=== PATIENT | female | born 1955 | race Caucasian/White ===

== ENCOUNTER 2017-08-30 01:12 | Inpatient (IN) | payer MEDICARE, OTHER ==
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
[2017-08-30 02:17] LABS: % BASOPHILS 1.6 % (0.0-2.0); % EOSINOPHILS 1.2 % (0.0-5.0); % LYMPHOCYTES 15.1 % (20.0-50.0); % MONOCYTES 7.8 % (2.0-10.0); % NEUTROPHILS 74.3 % (40.0-80.0); BASOPHILE ABSOLUTE 0.1 Th/cumm (0-0.2); EOSINOPHILE ABSOLUTE 0.1 Th/cmm (0.1-0.4); HEMATOCRIT 48.5 % (41.0-60); LYMPHOCYTE ABSOLUTE 1.1 Th/cmm (1.5-3.0); MEAN CELL VOLUME 94.7 fl (81-100); MEAN CORPUSCULAR HEMOGLOBIN 31.3 pg (27.0-31.0); MONOCYTE ABSOLUTE 0.6 Th/cmm (0.3-1.0); NEUTROPHILE ABSOLUTE 5.3 Th/cmm (1.8-8.0); PLATELET COUNT 157 Th/cmm (150-400); RED BLOOD COUNT 5.12 Mil/cmm (3.80-5.10); RED CELL DISTRIBUTION WIDTH 14.3 % (11.5-20.0); WHITE BLOOD COUNT 7.2 Th/cmm (4.8-10.8)
[2017-08-30 03:00] LABS: ALB/GLOB RATIO 0.9 (1.0-1.8); ALBUMIN 3.4 gm/dL (3.7-5.3); ALKALINE PHOSPHATASE 67 U/L (34-104); ANION GAP 14.2 (7.0-16.0); BILIRUBIN,TOTAL 0.3 mg/dL (0.3-1.0); BUN - UREA NITROGEN 25 mg/dL (7-25); CALCIUM SERUM 9.2 mg/dL (8.6-10.3); CARBON DIOXIDE 26.5 mEq/L (21.0-31.0); CHLORIDE 97 mEq/L (98-107); CHOLESTEROL 186 mg/dL (<200); CREATININE - SERUM 0.6 mg/dL (0.6-1.2); GFR AFRICAN-AMERICAN > 60.0 ml/min (>90); GFR NON AFRICAN-AMERICAN > 60.0 ml/min; GLUCOSE 92 mg/dL (70-105); HDL -HIGH DENSITY LIPOPROTEIN 43 mg/dL (23-92); POTASSIUM SERUM 4.7 mEq/L (3.5-5.1); SGOT 19 U/L (13-39); SGPT/ALT 6 U/L (7-52); SODIUM SERUM 133 mEq/L (136-145); TOTAL PROTEIN,SERUM 7.2 gm/dL (6.0-8.3); TRIGLYCERIDES 87 mg/dL (<150)
[2017-08-30 04:36] VITALS: BP 104/78
--- NOTE | 2017-08-30 10:03 | Diagnostic Imaging Report ---
Portable chest x-ray HISTORY: Shortness of breath There is a poor inspiration. Faintly density noted in the left lung base. Changes associated with subsegmental atelectasis cannot be excluded. Allowing for the poor inspiration and portable technique, heart size is normal. Deformity noted about the right humeral head that appears related to old trauma. IMPRESSION: 1. Faint linear densities in the left lung base that may be related to a poor inspiration. Subsegmental atelectasis cannot be excluded.
[2017-08-30] MEDS: Multivitamin Tab PO SCH (10:10)
--- NOTE | 2017-08-30 12:39 | Internal Medicine Prog Note ---
Internal Medicine Subjective - Subjective Service Date: 08/30/17 ([id number] [facility] dictated) Internal Medicine Objective - Results Result Diagrams: 08/30/17 02:05 08/30/17 02:05 Recent Labs: Laboratory Last Values WBC 7.2 Th/cmm (4.8-10.8) 08/30/17 02:05 RBC 5.12 Mil/cmm (3.80-5.10) H 08/30/17 02:05 Hgb 16.0 gm/dL (12-16) 08/30/17 02:05 Hct 48.5 % (41.0-60) 08/30/17 02:05 MCV 94.7 fl (81-100) 08/30/17 02:05 MCH 31.3 pg (27.0-31.0) H 08/30/17 02:05 MCHC Differential 33.0 pg (28.0-36.0) 08/30/17 02:05 RDW 14.3 % (11.5-20.0) 08/30/17 02:05 Plt Count 157 Th/cmm (150-400) 08/30/17 02:05 MPV 7.0 fl 08/30/17 02:05 Neutrophils % 74.3 % (40.0-80.0) 08/30/17 02:05 Lymphocytes % 15.1 % (20.0-50.0) L 08/30/17 02:05 Monocytes % 7.8 % (2.0-10.0) 08/30/17 02:05 Eosinophils % 1.2 % (0.0-5.0) 08/30/17 02:05 Basophils % 1.6 % (0.0-2.0) 08/30/17 02:05 Sodium 133 mEq/L (136-145) L 08/30/17 02:05 Potassium 4.7 mEq/L (3.5-5.1) 08/30/17 02:05 Chloride 97 mEq/L (98-107) L 08/30/17 02:05 Carbon Dioxide 26.5 mEq/L (21.0-31.0) 08/30/17 02:05 Anion Gap 14.2 (7.0-16.0) 08/30/17 02:05 BUN 25 mg/dL (7-25) 08/30/17 02:05 Creatinine 0.6 mg/dL (0.6-1.2) 08/30/17 02:05 Est GFR ( Amer) > 60.0 ml/min (>90) 08/30/17 02:05 Est GFR (Non-Af Amer) > 60.0 ml/min 08/30/17 02:05 BUN/Creatinine Ratio 41.7 08/30/17 02:05 Glucose 92 mg/dL (70-105) 08/30/17 02:05 Calcium 9.2 mg/dL (8.6-10.3) 08/30/17 02:05 Total Bilirubin 0.3 mg/dL (0.3-1.0) 08/30/17 02:05 AST 19 U/L (13-39) 08/30/17 02:05 ALT 6 U/L (7-52) L 08/30/17 02:05 Alkaline Phosphatase 67 U/L (34-104) 08/30/17 02:05 Total Protein 7.2 gm/dL (6.0-8.3) 08/30/17 02:05 Albumin 3.4 gm/dL (3.7-5.3) L 08/30/17 02:05 Globulin 3.8 gm/dL 08/30/17 02:05 Albumin/Globulin Ratio 0.9 (1.0-1.8) L 08/30/17 02:05 Triglycerides 87 mg/dL (<150) 08/30/17 02:05 Cholesterol 186 mg/dL (<200) 08/30/17 02:05 LDL Cholesterol Direct 138 mg/dL (75-193) 08/30/17 02:05 HDL Cholesterol 43 mg/dL (23-92) 08/30/17 02:05 TSH 5.67 uIU/ml (0.34-5.60) H 08/30/17 02:05 - Physical Exam Vitals and I&O: Vital Signs Temp 97.2 F 08/30/17 06:30 Pulse 67 08/30/17 06:30 Resp 18 08/30/17 06:30 BP 106/69 08/30/17 06:30 Pulse Ox 96 08/30/17 06:30 Intake & Output 08/29/17 08/30/17 08/30/17 18:59 06:59 18:59 Intake Total 60 Balance 60 Intake: Oral 60 Other: # Voids 1 # Bowel Movements 1 Active Medications: Current Medications Acetaminophen (Tylenol) 650 mg PO Q6H PRN PRN Reason: Pain or Fever >101 Stop: 10/29/17 06:34 Alprazolam (Xanax) 0.5 mg PO Q8HR KIANA PRN Reason: Protocol Stop: 10/29/17 12:59 Ascorbic Acid (Vitamin C) 500 mg PO DAILY [facility]NA Stop: 10/29/17 08:59 Last Admin: 08/30/17 10:10 Dose: 500 mg Bisacodyl (Dulcolax 10 Mg Supp) 10 mg RC DAILY PRN PRN Reason: Constipation Stop: 10/29/17 06:34 Divalproex Sodium (Depakote Dr) 2,000 mg PO TID KIANA PRN Reason: Protocol Stop: 10/29/17 08:59 Fluoxetine HCl (Prozac) 60 mg PO DAILY [facility]NA PRN Reason: Protocol Stop: 10/29/17 08:59 Last Admin: 08/30/17 10:09 Dose: 60 mg Levetiracetam (Keppra) 500 mg PO BID [facility] Stop: 10/29/17 08:59 Last Admin: 08/30/17 10:10 Dose: 500 mg Lorazepam (Ativan) 0.5 mg PO Q4HR PRN; Protocol PRN Reason: Anxiety Stop: 09/29/17 03:59 Last Admin: 08/30/17 10:09 Dose: 0.5 mg Magnesium Hydroxide (Milk Of Magnesia) 30 ml PO HS [facility] Stop: 10/29/17 20:59 Midodrine (Proamatine) 10 mg PO TID [facility] Stop: 10/29/17 08:59 Last Admin: 08/30/17 10:10 Dose: 10 mg Miscellaneous (Bifidobacterium Infantis [Align]) 4 mg PO DAILY [facility] Stop: 10/29/17 08:59 Multivitamins/Vitamin C (Theragran) 1 tab PO DAILY [facility] Stop: 10/29/17 08:59 Last Admin: 08/30/17 10:10 Dose: 1 tab Risperidone (Risperdal) 1 mg PO BID [facility] PRN Reason: Protocol Stop: 10/29/17 08:59 Last Admin: 08/30/17 10:10 Dose: 1 mg Zolpidem Tartrate (Ambien) 5 mg PO HS PRN PRN Reason: Insomnia Stop: 10/29/17 03:59
--- NOTE | 2017-08-30 16:02 | History & Physical ---
ADMIT DATE: 08/30/2017 CHIEF COMPLAINT: Aggressive behavior. HISTORY OF PRESENT ILLNESS: This is a 62-year-old female who is a longterm resident who was admitted here to the Geropsych Unit due to agitation and aggressive behavior towards nursing staff and residents. PAST MEDICAL HISTORY: Asthma, COPD, GERD, dementia, bilateral eye blindness, depression, anxiety, DJD, renal insufficiency, diabetes and pneumonia. FAMILY HISTORY: Noncontributory. SOCIAL HISTORY: The patient is a longterm resident, requiring 24-hour nursing care. SURGICAL HISTORY: Unknown. MEDICATIONS: Please see medication list. REVIEW OF SYSTEMS: GENERAL: Denies any fevers and chills. CARDIOVASCULAR: Denies chest pain. RESPIRATORY: Denies shortness of breath. GASTROINTESTINAL: Denies nausea, vomiting, abdominal pain. GENITOURINARY: Denies increased frequency or dysuria. NEUROLOGIC: No headaches, seizures or syncope. All systems are reviewed and are negative. PHYSICAL EXAMINATION: GENERAL: The patient is well developed, well nourished, no acute distress. VITAL SIGNS: Temperature 97.2, heart rate 67, blood pressure 106/69, respiration 18 and O2 96%. HEENT: Head; normocephalic and atraumatic. NECK: Supple. No mass. LUNGS: Clear bilaterally. HEART: Regular rate and rhythm. ABDOMEN: Soft and nontender. LABORATORY DATA: WBC 7.2, H and H 16.0 and 48.5 and platelet of 157. Sodium 132, potassium 4.7, chloride 97, BUN 25, creatinine of 0.6 and albumin at 3.4. DIAGNOSTIC DATA: The patient had a chest x-ray done in the ER and the impression is faint linear densities in the left lung base may be related to poor inspiration. ASSESSMENT: Mild protein-calorie malnutrition, dementia, asthma, gastroesophageal reflux disease, blindness, depression, anxiety, degenerative joint disease, acute renal insufficiency and diabetes. PLAN: We will check patient's glucose level. We will monitor the patient's signs and symptoms of any hyper or hypoglycemia. We will await for patient's A1c level. Fall precautions will be initiated. We will continue to follow this patient. JOB# [id number]
[2017-08-30 18:41] LABS: A1C % 4.9 % (4.0-6.0)
[2017-08-30] MEDS: Magnesium Hydroxide (MOM) 30 mL UDC PO SCH (21:30)
--- NOTE | 2017-08-30 21:30 | Psychosocial Evaluation ---
DATE OF SERVICE: 08/30/2017 INITIAL PSYCHIATRIC EVALUATION IDENTIFICATION DATA: Date of , 1955. CHIEF COMPLAINT: Psychotic illness. HISTORY OF PRESENT ILLNESS: The patient is a 62-year-old female was referred from her facility, [facility] for increased agitation, anger outburst, become more confused, aggressive with staff, refusing care. The patient is very forgetful and she is a poor historian, not able to answer much questions. The patient apparently has been taking her medications, but at times she refuses assistance. PAST PSYCHIATRIC HISTORY: Dementia and psychosis. PAST MEDICAL HISTORY: The patient was medically cleared in the ER, refer to H and P. PSYCHOSOCIAL HISTORY: The patient resides at [facility]. She requires complete care. MENTAL STATUS EXAMINATION: The patient appears to be older than stated age. Speech is minimal, some delayed responses. The patient thought she was 89 years old. The patient appears to be talking to self and at times. Insight is poor. Judgment is impaired. The patient's strengths: The patient is passively accepting treatment at this time. The patient's weakness is lack of insight. ASSESSMENT: Psychosis, not otherwise specified, rule out dementia, Alzheimer's type. MEDICAL: As per medical history and H and P. PLAN: We will admit the patient for hospitalization. We will start individual and group therapy, assess psychopharmacological intervention. ESTIMATED LENGTH OF STAY: 7. CRITERIA FOR DISCHARGE: Improved condition. No agitation, no aggressive behavior, no psychosis, safe disposition outpatient treatment plan. [facility]# [id number]
[2017-08-31] MEDS: Levothyroxine 0.025 Mg Tab PO SCH (06:40)
[2017-08-31] MEDS: Multivitamin Tab PO SCH (10:07)
[2017-08-31] MEDS ORDERED: Ipratropium Neb 0.5 mg/2.5 mL UD HHN PRN (19:55)
[2017-08-31] MEDS ORDERED: Albuterol Nebulizer 2.5mg/3mL HHN PRN (19:55)
[2017-08-31] MEDS: Albuterol/Ipratropium Neb 3 ML AERS HHN PRN (20:19)
[2017-08-31] MEDS: Magnesium Hydroxide (MOM) 30 mL UDC PO SCH (21:42)
--- NOTE | 2017-08-31 23:40 | Progress Notes ---
DATE: 08/31/2017 PSYCHIATRIC PROGRESS NOTE SUBJECTIVE: Staff was spoken to. The patient is interviewed. Mood is noted to be irritable. Affect is constricted. Coping skills are noted to be very poor. Insight and judgment are noted to be very impaired. No side effects to the medications are noted. The patient has been getting easily irritable and angry and the patient has been having difficult time to cope with the stress. ASSESSMENT: The patient is still impulsive and having difficult time to cope with the stress. I encouraged the patient to verbalize the concerns rather than to act out. The patient is currently on 1000 mg twice a day on the Depakene. The patient is not able to swallow, hence the patient is going to be placed on the Depakene liquid. The patient is also going to be continued on the Risperdal and follow up with the supportive therapy. ASSESSMENT: The patient is still psychotic and impulsive. PLAN: To continue the patient with the current medications. I encouraged the patient to verbalize the concerns rather than to act out. JOB# [id number]
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
[2017-09-01] MEDS: Levothyroxine 0.025 Mg Tab PO SCH (06:50)
[2017-09-01] MEDS: Multivitamin Tab PO SCH (10:00)
--- NOTE | 2017-09-01 13:02 | Diagnostic Imaging Report ---
CHEST X-RAY: AP view INDICATION: Shortness of breath COMPARISON: 08/30/2017 FINDINGS: Suboptimal lung volumes are noted. Bibasal atelectatic changes are noted. No focal consolidation or effusions. Heart size normal. Degenerative changes of the spine and shoulders are noted. There may have been previous trauma to the right humeral neck. IMPRESSION: Suboptimal lung volumes and bibasal atelectatic changes. No focal consolidation identified. Possible previous trauma to the right humeral neck. If indicated dedicated right shoulder x-rays may also be obtained.
--- NOTE | 2017-09-01 13:14 | Internal Medicine Prog Note ---
Internal Medicine Subjective - Subjective Service Date: 09/01/17 Patient seen and examined:: with staff Patient is:: awake Per staff patient has:: tolerating meds Internal Medicine Objective - Results Result Diagrams: 08/30/17 02:05 08/30/17 02:05 Recent Labs: Laboratory Last Values WBC 7.2 Th/cmm (4.8-10.8) 08/30/17 02:05 RBC 5.12 Mil/cmm (3.80-5.10) H 08/30/17 02:05 Hgb 16.0 gm/dL (12-16) 08/30/17 02:05 Hct 48.5 % (41.0-60) 08/30/17 02:05 MCV 94.7 fl (81-100) 08/30/17 02:05 MCH 31.3 pg (27.0-31.0) H 08/30/17 02:05 MCHC Differential 33.0 pg (28.0-36.0) 08/30/17 02:05 RDW 14.3 % (11.5-20.0) 08/30/17 02:05 Plt Count 157 Th/cmm (150-400) 08/30/17 02:05 MPV 7.0 fl 08/30/17 02:05 Neutrophils % 74.3 % (40.0-80.0) 08/30/17 02:05 Lymphocytes % 15.1 % (20.0-50.0) L 08/30/17 02:05 Monocytes % 7.8 % (2.0-10.0) 08/30/17 02:05 Eosinophils % 1.2 % (0.0-5.0) 08/30/17 02:05 Basophils % 1.6 % (0.0-2.0) 08/30/17 02:05 Sodium 133 mEq/L (136-145) L 08/30/17 02:05 Potassium 4.7 mEq/L (3.5-5.1) 08/30/17 02:05 Chloride 97 mEq/L (98-107) L 08/30/17 02:05 Carbon Dioxide 26.5 mEq/L (21.0-31.0) 08/30/17 02:05 Anion Gap 14.2 (7.0-16.0) 08/30/17 02:05 BUN 25 mg/dL (7-25) 08/30/17 02:05 Creatinine 0.6 mg/dL (0.6-1.2) 08/30/17 02:05 Est GFR ( Amer) > 60.0 ml/min (>90) 08/30/17 02:05 Est GFR (Non-Af Amer) > 60.0 ml/min 08/30/17 02:05 BUN/Creatinine Ratio 41.7 08/30/17 02:05 Glucose 92 mg/dL (70-105) 08/30/17 02:05 Hemoglobin A1c % 4.9 % (4.0-6.0) 08/30/17 02:05 Calcium 9.2 mg/dL (8.6-10.3) 08/30/17 02:05 Total Bilirubin 0.3 mg/dL (0.3-1.0) 08/30/17 02:05 AST 19 U/L (13-39) 08/30/17 02:05 ALT 6 U/L (7-52) L 08/30/17 02:05 Alkaline Phosphatase 67 U/L (34-104) 08/30/17 02:05 Total Protein 7.2 gm/dL (6.0-8.3) 08/30/17 02:05 Albumin 3.4 gm/dL (3.7-5.3) L 08/30/17 02:05 Globulin 3.8 gm/dL 08/30/17 02:05 Albumin/Globulin Ratio 0.9 (1.0-1.8) L 08/30/17 02:05 Triglycerides 87 mg/dL (<150) 08/30/17 02:05 Cholesterol 186 mg/dL (<200) 08/30/17 02:05 LDL Cholesterol Direct 138 mg/dL (75-193) 08/30/17 02:05 HDL Cholesterol 43 mg/dL (23-92) 08/30/17 02:05 TSH 5.67 uIU/ml (0.34-5.60) H 08/30/17 02:05 RPR NONREACTIVE (NONREACTIVE) 08/30/17 02:05 - Physical Exam Vitals and I&O: Vital Signs Temp 97.9 F 09/01/17 06:39 Pulse 76 09/01/17 08:15 Resp 18 09/01/17 08:15 BP 101/48 09/01/17 06:39 Pulse Ox 95 09/01/17 08:15 Intake & Output 08/31/17 09/01/17 09/01/17 18:59 06:59 18:59 Intake Total 1200 120 Balance 1200 120 Intake: Oral 1200 120 Other: # Voids 4 3 # Bowel Movements 1 Active Medications: Current Medications Acetaminophen (Tylenol) 650 mg PO Q6H PRN PRN Reason: Pain or Fever >101 Stop: 10/29/17 06:34 Albuterol Sulfate (Albuterol 2.5mg/3ml Neb Ud) 2.5 mg HHN QIDRT [facility] Stop: 10/31/17 14:59 Albuterol/Ipratropium (Duoneb Neb) 3 ml HHN Q6HRT PRN PRN Reason: Wheezing Stop: 10/30/17 19:53 Last Admin: 08/31/17 20:19 Dose: 3 ml Alprazolam (Xanax) 0.5 mg PO Q8HR PRN; Protocol PRN Reason: Anxiety Stop: 10/29/17 12:59 Ascorbic Acid (Vitamin C) 500 mg PO DAILY [facility] Stop: 10/29/17 08:59 Last Admin: 09/01/17 10:00 Dose: 500 mg Bisacodyl (Dulcolax 10 Mg Supp) 10 mg RC DAILY PRN PRN Reason: Constipation Stop: 10/29/17 06:34 Fluoxetine HCl (Prozac) 60 mg PO DAILY [facility]NA PRN Reason: Protocol Stop: 10/29/17 08:59 Last Admin: 09/01/17 10:00 Dose: Not Given Ipratropium [place] (Atrovent Neb 0.5mg/2.5ml) 0.5 mg HHN Q2HRT PRN PRN Reason: Shortness of Breath or Wheeze Stop: 10/30/17 19:54 Ipratropium [place] (Atrovent Neb 0.5mg/2.5ml) 0.5 mg IH QIDRT [facility] Stop: 10/31/17 14:59 Levetiracetam (Keppra) 500 mg PO BID [facility] Stop: 10/29/17 08:59 Last Admin: 09/01/17 10:00 Dose: 500 mg Levothyroxine Sodium (Synthroid) 0.025 mg PO QDAC [facility] Stop: 10/30/17 07:29 Last Admin: 09/01/17 06:50 Dose: 0.025 mg Lorazepam (Ativan) 0.5 mg PO Q4HR PRN; Protocol PRN Reason: Anxiety Stop: 09/29/17 03:59 Last Admin: 08/30/17 10:09 Dose: 0.5 mg Magnesium Hydroxide (Milk Of Magnesia) 30 ml PO HS [facility] Stop: 10/29/17 20:59 Last Admin: 08/31/17 21:42 Dose: 30 ml Midodrine (Proamatine) 10 mg PO TID [facility] Stop: 10/29/17 08:59 Last Admin: 09/01/17 10:00 Dose: 10 mg Miscellaneous (Bifidobacterium Infantis [Align]) 4 mg PO DAILY [facility] Stop: 10/29/17 08:59 Multivitamins/Vitamin C (Theragran) 1 tab PO DAILY [facility] Stop: 10/29/17 08:59 Last Admin: 09/01/17 10:00 Dose: 1 tab Risperidone (Risperdal) 1 mg PO BID [facility] PRN Reason: Protocol Stop: 10/29/17 08:59 Last Admin: 09/01/17 10:00 Dose: 1 mg Valproate Sodium (Depakene) 2,000 mg PO TID [facility] Stop: 10/30/17 13:59 Last Admin: 09/01/17 10:00 Dose: Not Given Zolpidem Tartrate (Ambien) 5 mg PO HS PRN PRN Reason: Insomnia Stop: 10/29/17 03:59 General: alert HEENT: NC/AT, PERRLA Neck: Supple Lungs: CTAB Abdomen: soft, non-tender, non-distended, positive bowel sound Neurological: no change Internal Medicine Assmt/Plan - Assessment Assessment: mild protein calorie malnutrition dementia asthma gerd blindness depression anxiety djd acute renal insufficiency dm - Plan Plan: monitor s/sx of hypo/hyperglycemia fall precautions continue current plan of care
--- NOTE | 2017-09-01 14:22 | Progress Notes ---
DATE: 09/01/2017 SUBJECTIVE: Staff was spoken to. The patient is interviewed. Mood is noted to be irritable. Affect is constricted. Insight and judgment at this time are noted to be still impaired. Impulse control seems to be limited. The patient has paranoid delusions, but denies any command hallucinations. No side effects to the medications are noted. The patient has been on valproic acid and then fluoxetine and the patient is also on risperidone. The patient is able to tolerate the medications. No side effects to the medications are noted at this time. ASSESSMENT: The patient is still impulsive and depressed. PLAN: To continue the patient with the current medications and follow up with supportive therapy. JOB# [id number]
[2017-09-01] MEDS: Ipratropium Neb 0.5 mg/2.5 mL UD IH SCH ×2 (15:57→19:57)
[2017-09-01] MEDS: Albuterol Nebulizer 2.5mg/3mL HHN SCH ×2 (15:57→19:57)
[2017-09-01] MEDS: Magnesium Hydroxide (MOM) 30 mL UDC PO SCH (21:53)
[2017-09-01] MEDS: Albuterol/Ipratropium Neb 3 ML AERS HHN PRN (23:54)
[2017-09-02] MEDS: Levothyroxine 0.025 Mg Tab PO SCH (06:48)
[2017-09-02] MEDS: Albuterol Nebulizer 2.5mg/3mL HHN SCH ×4 (07:13→20:12)
[2017-09-02] MEDS: Ipratropium Neb 0.5 mg/2.5 mL UD IH SCH ×4 (07:13→20:12)
[2017-09-02] MEDS: Multivitamin Tab PO SCH (10:15)
[2017-09-02] MEDS: Lactobacillus Rhamnosus GG 15 Billion CFU CAP.SPRINK PO SCH ×2 (13:38→13:39)
--- NOTE | 2017-09-02 15:02 | Internal Medicine Prog Note ---
Internal Medicine Subjective - Subjective Service Date: 09/02/17 Patient is:: awake Per staff patient has:: tolerating meds Internal Medicine Objective - Results Result Diagrams: 08/30/17 02:05 08/30/17 02:05 Recent Labs: Laboratory Last Values WBC 7.2 Th/cmm (4.8-10.8) 08/30/17 02:05 RBC 5.12 Mil/cmm (3.80-5.10) H 08/30/17 02:05 Hgb 16.0 gm/dL (12-16) 08/30/17 02:05 Hct 48.5 % (41.0-60) 08/30/17 02:05 MCV 94.7 fl (81-100) 08/30/17 02:05 MCH 31.3 pg (27.0-31.0) H 08/30/17 02:05 MCHC Differential 33.0 pg (28.0-36.0) 08/30/17 02:05 RDW 14.3 % (11.5-20.0) 08/30/17 02:05 Plt Count 157 Th/cmm (150-400) 08/30/17 02:05 MPV 7.0 fl 08/30/17 02:05 Neutrophils % 74.3 % (40.0-80.0) 08/30/17 02:05 Lymphocytes % 15.1 % (20.0-50.0) L 08/30/17 02:05 Monocytes % 7.8 % (2.0-10.0) 08/30/17 02:05 Eosinophils % 1.2 % (0.0-5.0) 08/30/17 02:05 Basophils % 1.6 % (0.0-2.0) 08/30/17 02:05 Sodium 133 mEq/L (136-145) L 08/30/17 02:05 Potassium 4.7 mEq/L (3.5-5.1) 08/30/17 02:05 Chloride 97 mEq/L (98-107) L 08/30/17 02:05 Carbon Dioxide 26.5 mEq/L (21.0-31.0) 08/30/17 02:05 Anion Gap 14.2 (7.0-16.0) 08/30/17 02:05 BUN 25 mg/dL (7-25) 08/30/17 02:05 Creatinine 0.6 mg/dL (0.6-1.2) 08/30/17 02:05 Est GFR ( Amer) > 60.0 ml/min (>90) 08/30/17 02:05 Est GFR (Non-Af Amer) > 60.0 ml/min 08/30/17 02:05 BUN/Creatinine Ratio 41.7 08/30/17 02:05 Glucose 92 mg/dL (70-105) 08/30/17 02:05 Hemoglobin A1c % 4.9 % (4.0-6.0) 08/30/17 02:05 Calcium 9.2 mg/dL (8.6-10.3) 08/30/17 02:05 Total Bilirubin 0.3 mg/dL (0.3-1.0) 08/30/17 02:05 AST 19 U/L (13-39) 08/30/17 02:05 ALT 6 U/L (7-52) L 08/30/17 02:05 Alkaline Phosphatase 67 U/L (34-104) 08/30/17 02:05 Total Protein 7.2 gm/dL (6.0-8.3) 08/30/17 02:05 Albumin 3.4 gm/dL (3.7-5.3) L 08/30/17 02:05 Globulin 3.8 gm/dL 08/30/17 02:05 Albumin/Globulin Ratio 0.9 (1.0-1.8) L 08/30/17 02:05 Triglycerides 87 mg/dL (<150) 08/30/17 02:05 Cholesterol 186 mg/dL (<200) 08/30/17 02:05 LDL Cholesterol Direct 138 mg/dL (75-193) 08/30/17 02:05 HDL Cholesterol 43 mg/dL (23-92) 08/30/17 02:05 TSH 5.67 uIU/ml (0.34-5.60) H 08/30/17 02:05 RPR NONREACTIVE (NONREACTIVE) 08/30/17 02:05 - Physical Exam Vitals and I&O: Vital Signs Temp 97.9 F 09/02/17 06:35 Pulse 77 09/02/17 14:15 Resp 18 09/02/17 14:15 BP 87/49 09/02/17 06:35 Pulse Ox 94 09/02/17 14:15 Intake & Output 09/01/17 09/02/17 09/02/17 18:59 06:59 18:59 Intake Total 780 Balance 780 Intake: Oral 780 Other: # Voids 4 3 # Bowel Movements 1 Active Medications: Current Medications Acetaminophen (Tylenol) 650 mg PO Q6H PRN PRN Reason: Pain or Fever >101 Stop: 10/29/17 06:34 Albuterol Sulfate (Albuterol 2.5mg/3ml Neb Ud) 2.5 mg HHN QIDRT [facility] Stop: 10/31/17 14:59 Last Admin: 09/02/17 14:15 Dose: 2.5 mg Albuterol/Ipratropium (Duoneb Neb) 3 ml HHN Q6HRT PRN PRN Reason: Wheezing Stop: 10/30/17 19:53 Last Admin: 09/01/17 23:54 Dose: 3 ml Alprazolam (Xanax) 0.5 mg PO Q8HR PRN; Protocol PRN Reason: Anxiety Stop: 10/29/17 12:59 Ascorbic Acid (Vitamin C) 500 mg PO DAILY [facility] Stop: 10/29/17 08:59 Last Admin: 09/02/17 10:16 Dose: 500 mg Bisacodyl (Dulcolax 10 Mg Supp) 10 mg RC DAILY PRN PRN Reason: Constipation Stop: 10/29/17 06:34 Fluoxetine HCl (Prozac) 60 mg PO DAILY [facility] PRN Reason: Protocol Stop: 10/29/17 08:59 Last Admin: 09/02/17 10:16 Dose: 60 mg Ipratropium [place] (Atrovent Neb 0.5mg/2.5ml) 0.5 mg HHN Q2HRT PRN PRN Reason: Shortness of Breath or Wheeze Stop: 10/30/17 19:54 Ipratropium [place] (Atrovent Neb 0.5mg/2.5ml) 0.5 mg IH QIDRT [facility] Stop: 10/31/17 14:59 Last Admin: 09/02/17 14:15 Dose: 0.5 mg Lactobacillus Rhamnosus (Culturelle 15b) 1 each PO DAILY [facility] Stop: 10/29/17 08:59 Last Admin: 09/02/17 13:39 Dose: 1 each Levetiracetam (Keppra) 500 mg PO BID [facility] Stop: 10/29/17 08:59 Last Admin: 09/02/17 10:15 Dose: 500 mg Levothyroxine Sodium (Synthroid) 0.025 mg PO QDAC [facility] Stop: 10/30/17 07:29 Last Admin: 09/02/17 06:48 Dose: 0.025 mg Lorazepam (Ativan) 0.5 mg PO Q4HR PRN; Protocol PRN Reason: Anxiety Stop: 09/29/17 03:59 Last Admin: 08/30/17 10:09 Dose: 0.5 mg Magnesium Hydroxide (Milk Of Magnesia) 30 ml PO HS [facility] Stop: 10/29/17 20:59 Last Admin: 09/01/17 21:53 Dose: 30 ml Midodrine (Proamatine) 10 mg PO TID [facility] Stop: 10/29/17 08:59 Last Admin: 09/02/17 14:23 Dose: 10 mg Multivitamins/Vitamin C (Theragran) 1 tab PO DAILY [facility] Stop: 10/29/17 08:59 Last Admin: 09/02/17 10:15 Dose: 1 tab Risperidone (Risperdal) 1 mg PO BID [facility] PRN Reason: Protocol Stop: 10/29/17 08:59 Last Admin: 09/02/17 10:16 Dose: 1 mg Valproate Sodium (Depakene) 2,000 mg PO TID [facility] Stop: 10/30/17 13:59 Last Admin: 09/02/17 13:39 Dose: 2,000 mg Zolpidem Tartrate (Ambien) 5 mg PO HS PRN PRN Reason: Insomnia Stop: 10/29/17 03:59 General: alert HEENT: NC/AT, PERRLA Neck: Supple Lungs: CTAB Abdomen: soft, non-tender, non-distended, positive bowel sound Neurological: no change Internal Medicine Assmt/Plan - Assessment Assessment: mild protein calorie malnutrition dementia asthma gerd blindness depression anxiety djd acute renal insufficiency dm - Plan Plan: monitor s/sx of hypo/hyperglycemia fall precautions continue current plan of care
[2017-09-02] MEDS: Magnesium Hydroxide (MOM) 30 mL UDC PO SCH (21:30)
[2017-09-02] MEDS: guaiFENesin 200 MG/10 ML UDC PO PRN (22:28)
--- NOTE | 2017-09-03 00:33 | Progress Notes ---
DATE: 09/02/2017 PSYCHIATRIC PROGRESS NOTE SUBJECTIVE: Staff was spoken to. The patient is interviewed. The patient is noted to be drowsy. The patient has been not able to verbalize the concerns. No side effects to the medications are noted. Insight and judgment at this time are noted to be still impaired. Impulse control is noted to be poor. The patient is reported to have been making some screaming and yelling ____ this morning. The patient at this time is not providing much of any information. In view of that one, it is decided to decrease the dose on the Prozac to 40 mg and closely monitor the patient for any depressive symptoms and psychotic symptoms. ASSESSMENT: The patient is still psychotic and impulsive. PLAN: To continue the patient with the current medications. I encouraged the patient to verbalize the concerns rather than to act out. JOB# [id number]
[2017-09-03] MEDS: Albuterol/Ipratropium Neb 3 ML AERS HHN PRN (02:37)
[2017-09-03] MEDS: Ipratropium Neb 0.5 mg/2.5 mL UD IH SCH ×4 (06:40→20:17)
[2017-09-03] MEDS: Albuterol Nebulizer 2.5mg/3mL HHN SCH ×4 (06:40→20:17)
[2017-09-03] MEDS: Levothyroxine 0.025 Mg Tab PO SCH (06:45)
[2017-09-03 06:55] LABS: % BASOPHILS 1.3 % (0.0-2.0); % LYMPHOCYTES 12.1 % (20.0-50.0); % MONOCYTES 8.3 % (2.0-10.0); % NEUTROPHILS 77.3 % (40.0-80.0); BASOPHILE ABSOLUTE 0.1 Th/cumm (0-0.2); EOSINOPHILE ABSOLUTE 0.1 Th/cmm (0.1-0.4); HEMATOCRIT 39.6 % (41.0-60); HEMOGLOBIN 13.3 gm/dL (12-16); LYMPHOCYTE ABSOLUTE 0.9 Th/cmm (1.5-3.0); MEAN CELL VOLUME 93.5 fl (81-100); MEAN CORPUSCULAR HEMOGLOBIN 31.5 pg (27.0-31.0); MEAN CORPUSCULAR HGB CONC 33.7 pg (28.0-36.0); MEAN PLATELET VOLUME 6.6 fl; MONOCYTE ABSOLUTE 0.6 Th/cmm (0.3-1.0); NEUTROPHILE ABSOLUTE 5.4 Th/cmm (1.8-8.0); PLATELET COUNT 162 Th/cmm (150-400); RED BLOOD COUNT 4.23 Mil/cmm (3.80-5.10); RED CELL DISTRIBUTION WIDTH 14.3 % (11.5-20.0); WHITE BLOOD COUNT 7.1 Th/cmm (4.8-10.8)
[2017-09-03 07:24] LABS: ALBUMIN 2.9 gm/dL (3.7-5.3); ALKALINE PHOSPHATASE 50 U/L (34-104); ANION GAP 7.8 (7.0-16.0); BILIRUBIN,TOTAL 0.3 mg/dL (0.3-1.0); BUN - UREA NITROGEN 22 mg/dL (7-25); CALCIUM SERUM 8.1 mg/dL (8.6-10.3); CARBON DIOXIDE 33.5 mEq/L (21.0-31.0); CHLORIDE 102 mEq/L (98-107); CREATININE - SERUM 0.4 mg/dL (0.6-1.2); GFR AFRICAN-AMERICAN > 60.0 ml/min (>90); GFR NON AFRICAN-AMERICAN > 60.0 ml/min; POTASSIUM SERUM 4.3 mEq/L (3.5-5.1); SGOT 14 U/L (13-39); SGPT/ALT 8 U/L (7-52); SODIUM SERUM 139 mEq/L (136-145); TOTAL PROTEIN,SERUM 5.7 gm/dL (6.0-8.3)
[2017-09-03] MEDS: Multivitamin Tab PO SCH (08:46)
[2017-09-03] MEDS: Lactobacillus Rhamnosus GG 15 Billion CFU CAP.SPRINK PO SCH (08:46)
[2017-09-03 09:11] LABS: GLUCOSE 77 mg/dL (70-105)
--- NOTE | 2017-09-03 15:30 | Internal Medicine Prog Note ---
Internal Medicine Subjective - Subjective Service Date: 09/03/17 Patient is:: awake Per staff patient has:: tolerating meds Internal Medicine Objective - Results Result Diagrams: 09/03/17 06:22 09/03/17 06:22 Recent Labs: Laboratory Last Values WBC 7.1 Th/cmm (4.8-10.8) 09/03/17 06:22 RBC 4.23 Mil/cmm (3.80-5.10) 09/03/17 06:22 Hgb 13.3 gm/dL (12-16) 09/03/17 06:22 Hct 39.6 % (41.0-60) L 09/03/17 06:22 MCV 93.5 fl (81-100) 09/03/17 06:22 MCH 31.5 pg (27.0-31.0) H 09/03/17 06:22 MCHC Differential 33.7 pg (28.0-36.0) 09/03/17 06:22 RDW 14.3 % (11.5-20.0) 09/03/17 06:22 Plt Count 162 Th/cmm (150-400) 09/03/17 06:22 MPV 6.6 fl 09/03/17 06:22 Neutrophils % 77.3 % (40.0-80.0) 09/03/17 06:22 Lymphocytes % 12.1 % (20.0-50.0) L 09/03/17 06:22 Monocytes % 8.3 % (2.0-10.0) 09/03/17 06: Eosinophils % 1.0 % (0.0-5.0) 09/03/17 06: Basophils % 1.3 % (0.0-2.0) 09/03/17 06:22 Sodium 139 mEq/L (136-145) 09/03/17 06:22 Potassium 4.3 mEq/L (3.5-5.1) 09/03/17 06:22 Chloride 102 mEq/L (98-107) 09/03/17 06:22 Carbon Dioxide 33.5 mEq/L (21.0-31.0) H 09/03/17 06:22 Anion Gap 7.8 (7.0-16.0) 09/03/17 06:22 BUN 22 mg/dL (7-25) 09/03/17 06:22 Creatinine 0.4 mg/dL (0.6-1.2) L 09/03/17 06:22 Est GFR ( Amer) > 60.0 ml/min (>90) 09/03/17 06:22 Est GFR (Non-Af Amer) > 60.0 ml/min 09/03/17 06:22 BUN/Creatinine Ratio 55.0 09/03/17 06:22 Glucose 77 mg/dL (70-105) 09/03/17 06:22 Hemoglobin A1c % 4.9 % (4.0-6.0) 08/30/17 02:05 Calcium 8.1 mg/dL (8.6-10.3) L 09/03/17 06:22 Total Bilirubin 0.3 mg/dL (0.3-1.0) 09/03/17 06:22 AST 14 U/L (13-39) 09/03/17 06:22 ALT 8 U/L (7-52) 09/03/17 06:22 Alkaline Phosphatase 50 U/L (34-104) 09/03/17 06:22 Total Protein 5.7 gm/dL (6.0-8.3) L 09/03/17 06:22 Albumin 2.9 gm/dL (3.7-5.3) L 09/03/17 06:22 Globulin 2.8 gm/dL 09/03/17 06:22 Albumin/Globulin Ratio 1.0 (1.0-1.8) 09/03/17 06:22 Triglycerides 87 mg/dL (<150) 08/30/17 02:05 Cholesterol 186 mg/dL (<200) 08/30/17 02:05 LDL Cholesterol Direct 138 mg/dL (75-193) 08/30/17 02:05 HDL Cholesterol 43 mg/dL (23-92) 08/30/17 02:05 TSH 5.67 uIU/ml (0.34-5.60) H 08/30/17 02:05 Valproic Acid 94.5 ug/mL (50.0-100.0) 09/03/17 06:22 RPR NONREACTIVE (NONREACTIVE) 08/30/17 02:05 - Physical Exam Vitals and I&O: Vital Signs Temp 97.8 F 09/03/17 15:21 Pulse 75 09/03/17 15:21 Resp 20 09/03/17 15:21 BP 107/55 09/03/17 15:21 Pulse Ox 96 09/03/17 15:21 Intake & Output 09/02/17 09/03/17 09/03/17 18:59 06:59 18:59 Intake Total 480 240 Output Total 3 Balance 477 240 Intake: Oral 480 240 Output: Urine 2 Stool 1 Other: # Voids 2 Active Medications: Current Medications Acetaminophen (Tylenol) 650 mg PO Q6H PRN PRN Reason: Pain or Fever >101 Stop: 10/29/17 06:34 Albuterol Sulfate (Albuterol 2.5mg/3ml Neb Ud) 2.5 mg HHN QIDRT [facility] Stop: 10/31/17 14:59 Last Admin: 09/03/17 14:34 Dose: 2.5 mg Albuterol/Ipratropium (Duoneb Neb) 3 ml HHN Q6HRT PRN PRN Reason: Wheezing Stop: 10/30/17 19:53 Last Admin: 09/03/17 02:37 Dose: 3 ml Alprazolam (Xanax) 0.5 mg PO Q8HR PRN; Protocol PRN Reason: Anxiety Stop: 10/29/17 12:59 Ascorbic Acid (Vitamin C) 500 mg PO DAILY [facility] Stop: 10/29/17 08:59 Last Admin: 09/03/17 08:45 Dose: 500 mg Bisacodyl (Dulcolax 10 Mg Supp) 10 mg RC DAILY PRN PRN Reason: Constipation Stop: 10/29/17 06:34 Fluoxetine HCl (Prozac) 20 mg PO DAILY [facility] PRN Reason: Protocol Stop: 11/02/17 14:37 Guaifenesin (Robitussin) 200 mg PO Q4H PRN PRN Reason: Cough or Congestion Stop: 11/01/17 21:41 Last Admin: 09/02/17 22:28 Dose: 200 mg Ipratropium [place] (Atrovent Neb 0.5mg/2.5ml) 0.5 mg HHN Q2HRT PRN PRN Reason: Shortness of Breath or Wheeze Stop: 10/30/17 19:54 Ipratropium [place] (Atrovent Neb 0.5mg/2.5ml) 0.5 mg IH QIDRT [facility] Stop: 10/31/17 14:59 Last Admin: 09/03/17 14:34 Dose: 0.5 mg Lactobacillus Rhamnosus (Culturelle 15b) 1 each PO DAILY [facility] Stop: 10/29/17 08:59 Last Admin: 09/03/17 08:46 Dose: 1 each Levetiracetam (Keppra) 500 mg PO BID [facility] Stop: 10/29/17 08:59 Last Admin: 09/03/17 08:46 Dose: 500 mg Levothyroxine Sodium (Synthroid) 0.025 mg PO QDAC [facility] Stop: 10/30/17 07:29 Last Admin: 09/03/17 06:45 Dose: 0.025 mg Lorazepam (Ativan) 0.5 mg PO Q4HR PRN; Protocol PRN Reason: Anxiety Stop: 09/29/17 03:59 Last Admin: 08/30/17 10:09 Dose: 0.5 mg Magnesium Hydroxide (Milk Of Magnesia) 30 ml PO HS [facility] Stop: 10/29/17 20:59 Last Admin: 09/02/17 21:30 Dose: 30 ml Midodrine (Proamatine) 10 mg PO TID [facility] Stop: 10/29/17 08:59 Multivitamins/Vitamin C (Theragran) 1 tab PO DAILY [facility] Stop: 10/29/17 08:59 Last Admin: 09/03/17 08:46 Dose: 1 tab Mupirocin (Bactroban Oint) 1 appl NS BID [facility] Stop: 09/07/17 17:01 Last Admin: 09/03/17 08:56 Dose: 1 appl Risperidone (Risperdal) 1 mg PO BID [facility] PRN Reason: Protocol Stop: 10/29/17 08:59 Last Admin: 09/03/17 08:45 Dose: 1 mg Zolpidem Tartrate (Ambien) 5 mg PO HS PRN PRN Reason: Insomnia Stop: 10/29/17 03:59 General: alert HEENT: NC/AT, PERRLA Neck: Supple Lungs: CTAB Abdomen: soft, non-tender, non-distended, positive bowel sound Neurological: no change Internal Medicine Assmt/Plan - Assessment Assessment: mild protein calorie malnutrition dementia asthma gerd blindness depression anxiety djd acute renal insufficiency dm - Plan Plan: monitor s/sx of hypo/hyperglycemia fall precautions continue current plan of care Nutritional Asmnt/Malnutr-PDOC - Dietary Evaluation Malnutrition Findings (Please click <Entered> for more info): Nutritional Asmnt/Malnutrition Start: 09/02/17 15: 47 Text: Status: Active Freq: Document 09/02/17 15:53 [facility] (Rec: 09/02/17 16:00 MICHAEL [email or web address]) Nutritional Asmnt/Malnutrition Patient General Information Nutritional Screening Moderate Risk Diagnosis psychosis NOS Pertinent Medical Hx/Surgical Hx asthma, COPD, GERD, dementia, bilateral eye blindness, depression, anxiety, DJD, renal insufficiency, DM, PNA Subjective Information Pt seen sitting up in bed at time of visit. Spoke with NURSE COORDINATOR, NURSE COORDINATOR reported pt consumed 100% of lunch with feeding. Pt needs feeding assist d/t bilateral eye blindness. Per EMR, PO intake 5-100%. Current Diet Order/ Nutrition Support mec soft ground Pertinent Medications vit C, culturelle, synthroid, theragran Pertinent Labs 08/30 Na 133, Cl 97, glucose 92 , A1c 4.9 Nutritional Hx/Data Height 4 ft 8 in Height (Calculated Centimeters) 142.2 Current Weight (lbs) 129 lb Weight (Calculated Kilograms) 58.5 Weight (Calculated Grams) 44575.4 [place] Body Weight 92 Body Mass Index (BMI) 28.9 Weight Status Overweight GI Symptoms GI Symptoms None Last BM 09/01 Difficult in: None Skin Integrity/Comment: bruise Estimated Nutritional Goals BEE in Kcals: Adj wt of IBW Calories/Kcals/Kg 25-30 Kcals Calculated [id number] Protein: Adj wt of IBW Protein g/k Protein Calculated 46 Fluid: ml 1150-1380ml (1ml/kcal) Nutritional Problem No current Nutrition Prob Problem N/A Malnutrition Alert Protein-Calorie Malnutrition N/A Is there a minimum of two criteria No selected? Query Text:Check all the applicable criteria. A minimum of two criteria are recommended for diagnosis of either severe or non-severe malnutrition. Intervention/Recommendation Comments 1. Continue with [facility] soft ground diet as ordered. Please assit pt with feeding at each meal. 2. Monitor PO intake, wt, labs and skin integrity 3. F/U as low risk in 7 days, 09/09, PO check 09/06 Expected Outcomes/Goals Expected Outcomes/Goals 1. PO intake to meet at least 75% of nutritional needs. 2. Wt stability, skin to remain intact, labs to approach WNL.
--- NOTE | 2017-09-03 17:30 | Progress Notes ---
DATE: 09/03/2017 SUBJECTIVE: Staff was spoken to. The patient is interviewed. Mood is noted to be depressed. Affect is constricted. The patient is isolative and withdrawn. Insight and judgment are noted to be still impaired. Impulse control seems to be limited. No side effects to the medications are noted. The patient has been isolative and withdrawn. The patient at this time is being closely monitored for any aggressive behavior and so far she has been quiet and no major behavioral problems are reported by the staff. The patient is currently on risperidone 1 mg twice a day along with valproic acid 200 mg 3 times a day. Valproic acid level is noted to be 94.5. ASSESSMENT: The patient's mood swings are coming under control. PLAN: To continue the patient with supportive therapy. We encouraged the patient to verbalize the concerns and gradually decrease the dose on the Prozac to 20 mg and follow the patient with supportive therapy. JOB# [id number]
[2017-09-03] MEDS: Magnesium Hydroxide (MOM) 30 mL UDC PO SCH (21:14)
[2017-09-04] MEDS: Albuterol Nebulizer 2.5mg/3mL HHN SCH ×4 (06:28→19:59)
[2017-09-04] MEDS: Ipratropium Neb 0.5 mg/2.5 mL UD IH SCH ×4 (06:29→19:59)
[2017-09-04] MEDS: Levothyroxine 0.025 Mg Tab PO SCH (06:51)
[2017-09-04] MEDS: guaiFENesin 200 MG/10 ML UDC PO PRN (06:57)
[2017-09-04] MEDS: Multivitamin Tab PO SCH (09:52)
[2017-09-04] MEDS: Lactobacillus Rhamnosus GG 15 Billion CFU CAP.SPRINK PO SCH (09:53)
--- NOTE | 2017-09-04 15:09 | Internal Medicine Prog Note ---
Internal Medicine Subjective - Subjective Service Date: 09/04/17 Patient is:: awake Per staff patient has:: tolerating meds Internal Medicine Objective - Results Result Diagrams: 09/03/17 06:22 09/03/17 06:22 Recent Labs: Laboratory Last Values WBC 7.1 Th/cmm (4.8-10.8) 09/03/17 06:22 RBC 4.23 Mil/cmm (3.80-5.10) 09/03/17 06:22 Hgb 13.3 gm/dL (12-16) 09/03/17 06:22 Hct 39.6 % (41.0-60) L 09/03/17 06:22 MCV 93.5 fl (81-100) 09/03/17 06:22 MCH 31.5 pg (27.0-31.0) H 09/03/17 06:22 MCHC Differential 33.7 pg (28.0-36.0) 09/03/17 06:22 RDW 14.3 % (11.5-20.0) 09/03/17 06:22 Plt Count 162 Th/cmm (150-400) 09/03/17 06:22 MPV 6.6 fl 09/03/17 06:22 Neutrophils % 77.3 % (40.0-80.0) 09/03/17 06:22 Lymphocytes % 12.1 % (20.0-50.0) L 09/03/17 06:22 Monocytes % 8.3 % (2.0-10.0) 09/03/17 06: Eosinophils % 1.0 % (0.0-5.0) 09/03/17 06: Basophils % 1.3 % (0.0-2.0) 09/03/17 06:22 Sodium 139 mEq/L (136-145) 09/03/17 06:22 Potassium 4.3 mEq/L (3.5-5.1) 09/03/17 06:22 Chloride 102 mEq/L (98-107) 09/03/17 06:22 Carbon Dioxide 33.5 mEq/L (21.0-31.0) H 09/03/17 06:22 Anion Gap 7.8 (7.0-16.0) 09/03/17 06:22 BUN 22 mg/dL (7-25) 09/03/17 06:22 Creatinine 0.4 mg/dL (0.6-1.2) L 09/03/17 06:22 Est GFR ( Amer) > 60.0 ml/min (>90) 09/03/17 06:22 Est GFR (Non-Af Amer) > 60.0 ml/min 09/03/17 06:22 BUN/Creatinine Ratio 55.0 09/03/17 06:22 Glucose 77 mg/dL (70-105) 09/03/17 06:22 Hemoglobin A1c % 4.9 % (4.0-6.0) 08/30/17 02:05 Calcium 8.1 mg/dL (8.6-10.3) L 09/03/17 06:22 Total Bilirubin 0.3 mg/dL (0.3-1.0) 09/03/17 06:22 AST 14 U/L (13-39) 09/03/17 06:22 ALT 8 U/L (7-52) 09/03/17 06:22 Alkaline Phosphatase 50 U/L (34-104) 09/03/17 06:22 Total Protein 5.7 gm/dL (6.0-8.3) L 09/03/17 06:22 Albumin 2.9 gm/dL (3.7-5.3) L 09/03/17 06:22 Globulin 2.8 gm/dL 09/03/17 06:22 Albumin/Globulin Ratio 1.0 (1.0-1.8) 09/03/17 06:22 Triglycerides 87 mg/dL (<150) 08/30/17 02:05 Cholesterol 186 mg/dL (<200) 08/30/17 02:05 LDL Cholesterol Direct 138 mg/dL (75-193) 08/30/17 02:05 HDL Cholesterol 43 mg/dL (23-92) 08/30/17 02:05 TSH 5.67 uIU/ml (0.34-5.60) H 08/30/17 02:05 Valproic Acid 94.5 ug/mL (50.0-100.0) 09/03/17 06:22 RPR NONREACTIVE (NONREACTIVE) 08/30/17 02:05 - Physical Exam Vitals and I&O: Vital Signs Temp 98 F 09/04/17 05:38 Pulse 73 09/04/17 11:13 Resp 18 09/04/17 11:13 BP 101/63 09/04/17 05:38 Pulse Ox 97 09/04/17 11:13 Intake & Output 09/03/17 09/04/17 09/04/17 18:59 06:59 18:59 Intake Total 720 480 Output Total 2 1 Balance 718 479 Intake: Oral 720 480 Output: Urine 2 Stool 0 Urine/Stool Mix 1 Other: # Voids 1 # Bowel Movements 2 Active Medications: Current Medications Acetaminophen (Tylenol) 650 mg PO Q6H PRN PRN Reason: Pain or Fever >101 Stop: 10/29/17 06:34 Albuterol Sulfate (Albuterol 2.5mg/3ml Neb Ud) 2.5 mg HHN QIDRT [facility] Stop: 10/31/17 14:59 Last Admin: 09/04/17 11:07 Dose: 2.5 mg Albuterol/Ipratropium (Duoneb Neb) 3 ml HHN Q6HRT PRN PRN Reason: Wheezing Stop: 10/30/17 19:53 Last Admin: 09/03/17 02:37 Dose: 3 ml Alprazolam (Xanax) 0.5 mg PO Q8HR PRN; Protocol PRN Reason: Anxiety Stop: 10/29/17 12:59 Ascorbic Acid (Vitamin C) 500 mg PO DAILY [facility] Stop: 10/29/17 08:59 Last Admin: 09/04/17 09:52 Dose: 500 mg Bisacodyl (Dulcolax 10 Mg Supp) 10 mg RC DAILY PRN PRN Reason: Constipation Stop: 10/29/17 06:34 Fluoxetine HCl (Prozac) 20 mg PO DAILY [facility] PRN Reason: Protocol Stop: 11/02/17 14:37 Last Admin: 09/04/17 09:52 Dose: 20 mg Guaifenesin (Robitussin) 200 mg PO Q4H PRN PRN Reason: Cough or Congestion Stop: 11/01/17 21:41 Last Admin: 09/04/17 06:57 Dose: 200 mg Ipratropium [place] (Atrovent Neb 0.5mg/2.5ml) 0.5 mg HHN Q2HRT PRN PRN Reason: Shortness of Breath or Wheeze Stop: 10/30/17 19:54 Ipratropium [place] (Atrovent Neb 0.5mg/2.5ml) 0.5 mg IH QIDRT [facility] Stop: 10/31/17 14:59 Last Admin: 09/04/17 11:07 Dose: 0.5 mg Lactobacillus Rhamnosus (Culturelle 15b) 1 each PO DAILY [facility] Stop: 10/29/17 08:59 Last Admin: 09/04/17 09:53 Dose: 1 each Levetiracetam (Keppra) 500 mg PO BID [facility] Stop: 10/29/17 08:59 Last Admin: 09/04/17 09:52 Dose: 500 mg Levothyroxine Sodium (Synthroid) 0.025 mg PO QDAC [facility] Stop: 10/30/17 07:29 Last Admin: 09/04/17 06:51 Dose: 0.025 mg Lorazepam (Ativan) 0.5 mg PO Q4HR PRN; Protocol PRN Reason: Anxiety Stop: 09/29/17 03:59 Last Admin: 08/30/17 10:09 Dose: 0.5 mg Magnesium Hydroxide (Milk Of Magnesia) 30 ml PO HS [facility] Stop: 10/29/17 20:59 Last Admin: 09/03/17 21:14 Dose: 30 ml Midodrine (Proamatine) 10 mg PO TID [facility] Stop: 10/29/17 08:59 Last Admin: 09/04/17 13:54 Dose: Not Given Multivitamins/Vitamin C (Theragran) 1 tab PO DAILY [facility] Stop: 10/29/17 08:59 Last Admin: 09/04/17 09:52 Dose: 1 tab Mupirocin (Bactroban Oint) 1 appl NS BID [facility] Stop: 09/07/17 17:01 Last Admin: 09/04/17 09:54 Dose: 1 appl Risperidone (Risperdal) 1 mg PO BID [facility] PRN Reason: Protocol Stop: 10/29/17 08:59 Last Admin: 09/04/17 09:52 Dose: 1 mg Zolpidem Tartrate (Ambien) 5 mg PO HS PRN PRN Reason: Insomnia Stop: 10/29/17 03:59 General: alert HEENT: NC/AT, PERRLA Neck: Supple Lungs: CTAB Abdomen: soft, non-tender, non-distended, positive bowel sound Neurological: no change Internal Medicine Assmt/Plan - Assessment Assessment: mild protein calorie malnutrition dementia asthma gerd blindness depression anxiety djd acute renal insufficiency dm - Plan Plan: monitor s/sx of hypo/hyperglycemia fall precautions continue current plan of care Nutritional Asmnt/Malnutr-PDOC - Dietary Evaluation Malnutrition Findings (Please click <Entered> for more info): Nutritional Asmnt/Malnutrition Start: 09/02/17 15: 47 Text: Status: Active Freq: Document 09/02/17 15:53 [facility] (Rec: 09/02/17 16:00 HEN [email or web address]) Nutritional Asmnt/Malnutrition Patient General Information Nutritional Screening Moderate Risk Diagnosis psychosis NOS Pertinent Medical Hx/Surgical Hx asthma, COPD, GERD, dementia, bilateral eye blindness, depression, anxiety, DJD, renal insufficiency, DM, PNA Subjective Information Pt seen sitting up in bed at time of visit. Spoke with PUBLIC OPINION SURVEY TAKER, PUBLIC OPINION SURVEY TAKER reported pt consumed 100% of lunch with feeding. Pt needs feeding assist d/t bilateral eye blindness. Per EMR, PO intake 5-100%. Current Diet Order/ Nutrition Support the [facility] soft ground Pertinent Medications vit C, culturelle, synthroid, theragran Pertinent Labs 08/30 Na 133, Cl 97, glucose 92 , A1c 4.9 Nutritional Hx/Data Height 4 ft 8 in Height (Calculated Centimeters) 142.2 Current Weight (lbs) 129 lb Weight (Calculated Kilograms) 58.5 Weight (Calculated Grams) 28014.4 [place] Body Weight 92 Body Mass Index (BMI) 28.9 Weight Status Overweight GI Symptoms GI Symptoms None Last BM 09/01 Difficult in: None Skin Integrity/Comment: bruise Estimated Nutritional Goals BEE in Kcals: Adj wt of IBW Calories/Kcals/Kg 25-30 Kcals Calculated 4630-9841 Protein: Adj wt of IBW Protein g/k Protein Calculated 46 Fluid: ml 1150-1380ml (1ml/kcal) Nutritional Problem No current Nutrition Prob Problem N/A Malnutrition Alert Protein-Calorie Malnutrition N/A Is there a minimum of two criteria No selected? Query Text:Check all the applicable criteria. A minimum of two criteria are recommended for diagnosis of either severe or non-severe malnutrition. Intervention/Recommendation Comments 1. Continue with the [facility] soft ground diet as ordered. Please assit pt with feeding at each meal. 2. Monitor PO intake, wt, labs and skin integrity 3. F/U as low risk in 7 days, 09/09, PO check 09/06 Expected Outcomes/Goals Expected Outcomes/Goals 1. PO intake to meet at least 75% of nutritional needs. 2. Wt stability, skin to remain intact, labs to approach WNL.
--- NOTE | 2017-09-04 18:58 | Progress Notes ---
DATE: 09/04/2017 PSYCHIATRIC PROGRESS NOTE SUBJECTIVE: Staff was spoken to. The patient is interviewed. Mood is noted to be depressed. Affect is constricted. The patient is isolative and withdrawn. The patient is not presenting with any major behavioral problems today. The patient has, however, continued to be confused and it is also reported that the patient ____ gets easily agitated, but today she seems to be doing a little bit better. ASSESSMENT: The patient's impulsivity is getting under control. PLAN: To continue the patient's current medications and followup. JOB# [id number]
[2017-09-04] MEDS: Magnesium Hydroxide (MOM) 30 mL UDC PO SCH (21:04)
[2017-09-05] MEDS: Levothyroxine 0.025 Mg Tab PO SCH (06:53)
[2017-09-05] MEDS: Albuterol Nebulizer 2.5mg/3mL HHN SCH ×3 (07:57→15:52)
[2017-09-05] MEDS: Ipratropium Neb 0.5 mg/2.5 mL UD IH SCH ×4 (07:58→19:51)
[2017-09-05] MEDS: Lactobacillus Rhamnosus GG 15 Billion CFU CAP.SPRINK PO SCH (09:15)
[2017-09-05] MEDS: Multivitamin Tab PO SCH (09:16)
--- NOTE | 2017-09-05 11:42 | Internal Medicine Prog Note ---
Internal Medicine Subjective - Subjective Patient seen and examined:: with staff, chart reviewed Patient is:: awake, verbal, interactive, confused Patient Complaints of:: congestion Per staff patient has:: no adverse event, no episodes of fall, noncompliant, tolerating meds Internal Medicine Objective - Results Result Diagrams: 09/03/17 06:22 09/03/17 06:22 Recent Labs: Laboratory Last Values WBC 7.1 Th/cmm (4.8-10.8) 09/03/17 06:22 RBC 4.23 Mil/cmm (3.80-5.10) 09/03/17 06:22 Hgb 13.3 gm/dL (12-16) 09/03/17 06:22 Hct 39.6 % (41.0-60) L 09/03/17 06:22 MCV 93.5 fl (81-100) 09/03/17 06:22 MCH 31.5 pg (27.0-31.0) H 09/03/17 06:22 MCHC Differential 33.7 pg (28.0-36.0) 09/03/17 06:22 RDW 14.3 % (11.5-20.0) 09/03/17 06:22 Plt Count 162 Th/cmm (150-400) 09/03/17 06:22 MPV 6.6 fl 09/03/17 06:22 Neutrophils % 77.3 % (40.0-80.0) 09/03/17 06:22 Lymphocytes % 12.1 % (20.0-50.0) L 09/03/17 06: Monocytes % 8.3 % (2.0-10.0) 09/03/17 06:22 Eosinophils % 1.0 % (0.0-5.0) 09/03/17 06:22 Basophils % 1.3 % (0.0-2.0) 09/03/17 06:22 Sodium 139 mEq/L (136-145) 09/03/17 06:22 Potassium 4.3 mEq/L (3.5-5.1) 09/03/17 06:22 Chloride 102 mEq/L (98-107) 09/03/17 06:22 Carbon Dioxide 33.5 mEq/L (21.0-31.0) H 09/03/17 06:22 Anion Gap 7.8 (7.0-16.0) 09/03/17 06:22 BUN 22 mg/dL (7-25) 09/03/17 06:22 Creatinine 0.4 mg/dL (0.6-1.2) L 09/03/17 06:22 Est GFR ( Amer) > 60.0 ml/min (>90) 09/03/17 06:22 Est GFR (Non-Af Amer) > 60.0 ml/min 09/03/17 06:22 BUN/Creatinine Ratio 55.0 09/03/17 06:22 Glucose 77 mg/dL (70-105) 09/03/17 06:22 Hemoglobin A1c % 4.9 % (4.0-6.0) 08/30/17 02:05 Calcium 8.1 mg/dL (8.6-10.3) L 09/03/17 06:22 Total Bilirubin 0.3 mg/dL (0.3-1.0) 09/03/17 06:22 AST 14 U/L (13-39) 09/03/17 06:22 ALT 8 U/L (7-52) 09/03/17 06:22 Alkaline Phosphatase 50 U/L (34-104) 09/03/17 06:22 Total Protein 5.7 gm/dL (6.0-8.3) L 09/03/17 06:22 Albumin 2.9 gm/dL (3.7-5.3) L 09/03/17 06:22 Globulin 2.8 gm/dL 09/03/17 06:22 Albumin/Globulin Ratio 1.0 (1.0-1.8) 09/03/17 06:22 Triglycerides 87 mg/dL (<150) 08/30/17 02:05 Cholesterol 186 mg/dL (<200) 08/30/17 02:05 LDL Cholesterol Direct 138 mg/dL (75-193) 08/30/17 02:05 HDL Cholesterol 43 mg/dL (23-92) 08/30/17 02:05 TSH 5.67 uIU/ml (0.34-5.60) H 08/30/17 02:05 Valproic Acid 94.5 ug/mL (50.0-100.0) 09/03/17 06:22 RPR NONREACTIVE (NONREACTIVE) 08/30/17 02:05 - Physical Exam Vitals and I&O: Vital Signs Temp 98.1 F 09/05/17 06:28 Pulse 67 09/05/17 08:24 Resp 18 09/05/17 08:24 BP 90/38 09/05/17 06:28 Pulse Ox 96 09/05/17 08:24 Intake & Output 09/04/17 09/05/17 09/05/17 18:59 06:59 18:59 Intake Total 800 180 Balance 800 180 Intake: Oral 800 180 Other: # Voids 4 2 # Bowel Movements 1 1 Active Medications: Current Medications Acetaminophen (Tylenol) 650 mg PO Q6H PRN PRN Reason: Pain or Fever >101 Stop: 10/29/17 06:34 Albuterol Sulfate (Albuterol 2.5mg/3ml Neb Ud) 2.5 mg HHN QIDRT [facility] Stop: 10/31/17 14:59 Last Admin: 09/05/17 07:57 Dose: 2.5 mg Albuterol/Ipratropium (Duoneb Neb) 3 ml HHN Q6HRT PRN PRN Reason: Wheezing Stop: 10/30/17 19:53 Last Admin: 09/03/17 02:37 Dose: 3 ml Alprazolam (Xanax) 0.5 mg PO Q8HR PRN; Protocol PRN Reason: Anxiety Stop: 10/29/17 12:59 Ascorbic Acid (Vitamin C) 500 mg PO DAILY [facility] Stop: 10/29/17 08:59 Last Admin: 09/05/17 09:16 Dose: 500 mg Bisacodyl (Dulcolax 10 Mg Supp) 10 mg RC DAILY PRN PRN Reason: Constipation Stop: 10/29/17 06:34 Fluoxetine HCl (Prozac) 20 mg PO DAILY [facility] PRN Reason: Protocol Stop: 11/02/17 14:37 Last Admin: 09/05/17 09:15 Dose: 20 mg Guaifenesin (Robitussin) 200 mg PO Q4H PRN PRN Reason: Cough or Congestion Stop: 11/01/17 21:41 Last Admin: 09/04/17 06:57 Dose: 200 mg Ipratropium [place] (Atrovent Neb 0.5mg/2.5ml) 0.5 mg HHN Q2HRT PRN PRN Reason: Shortness of Breath or Wheeze Stop: 10/30/17 19:54 Ipratropium [place] (Atrovent Neb 0.5mg/2.5ml) 0.5 mg IH QIDRT [facility] Stop: 10/31/17 14:59 Last Admin: 09/05/17 07:58 Dose: 0.5 mg Lactobacillus Rhamnosus (Culturelle 15b) 1 each PO DAILY [facility] Stop: 10/29/17 08:59 Last Admin: 09/05/17 09:15 Dose: 1 each Levetiracetam (Keppra) 500 mg PO BID [facility] Stop: 10/29/17 08:59 Last Admin: 09/05/17 09:15 Dose: 500 mg Levothyroxine Sodium (Synthroid) 0.025 mg PO QDAC [facility] Stop: 10/30/17 07:29 Last Admin: 09/05/17 06:53 Dose: 0.025 mg Lorazepam (Ativan) 0.5 mg PO Q4HR PRN; Protocol PRN Reason: Anxiety Stop: 09/29/17 03:59 Last Admin: 08/30/17 10:09 Dose: 0.5 mg Magnesium Hydroxide (Milk Of Magnesia) 30 ml PO HS [facility] Stop: 10/29/17 20:59 Last Admin: 09/04/17 21:04 Dose: 30 ml Midodrine (Proamatine) 10 mg PO TID [facility] Stop: 10/29/17 08:59 Last Admin: 09/05/17 09:15 Dose: 10 mg Multivitamins/Vitamin C (Theragran) 1 tab PO DAILY [facility] Stop: 10/29/17 08:59 Last Admin: 09/05/17 09:16 Dose: 1 tab Mupirocin (Bactroban Oint) 1 appl NS BID [facility] Stop: 09/07/17 17:01 Last Admin: 09/05/17 09:16 Dose: 1 appl Risperidone (Risperdal) 1 mg PO BID [facility] PRN Reason: Protocol Stop: 10/29/17 08:59 Last Admin: 09/05/17 09:16 Dose: 1 mg Zolpidem Tartrate (Ambien) 5 mg PO HS PRN PRN Reason: Insomnia Stop: 10/29/17 03:59 General: demented HEENT: NC/AT, PERRLA Neck: Supple Lungs: congested, rales Abdomen: soft, non-tender, non-distended, positive bowel sound Extremities: excoriation, deformity, atrophy Neurological: no change Internal Medicine Assmt/Plan - Assessment Assessment: Assessment Assessment: mild protein calorie malnutrition dementia asthma gerd blindness depression anxiety djd acute renal insufficiency dm - Plan Plan: monitor s/sx of hypo/hyperglycemia fall precautions continue current plan of care - Plan Plan: labs noted and cxr lindsey rn Nutritional Asmnt/Malnutr-PDOC - Dietary Evaluation Malnutrition Findings (Please click <Entered> for more info): Nutritional Asmnt/Malnutrition Start: 09/02/17 15: 47 Text: Status: Active Freq: Document 09/02/17 15:53 MICHAEL (Rec: 09/02/17 16:00 MICHAEL [email or web address]) Nutritional Asmnt/Malnutrition Patient General Information Nutritional Screening Moderate Risk Diagnosis psychosis NOS Pertinent Medical Hx/Surgical Hx asthma, COPD, GERD, dementia, bilateral eye blindness, depression, anxiety, DJD, renal insufficiency, DM, PNA Subjective Information Pt seen sitting up in bed at time of visit. Spoke with POLITICAL RESEARCHER, POLITICAL RESEARCHER reported pt consumed 100% of lunch with feeding. Pt needs feeding assist d/t bilateral eye blindness. Per EMR, PO intake 5-100%. Current Diet Order/ Nutrition Support [facility] soft ground Pertinent Medications vit C, culturelle, synthroid, theragran Pertinent Labs 08/30 Na 133, Cl 97, glucose 92 , A1c 4.9 Nutritional Hx/Data Height 1.42 m Height (Calculated Centimeters) 142.2 Current Weight (lbs) 58.513 kg Weight (Calculated Kilograms) 58.5 Weight (Calculated Grams) 65399.4 [place] Body Weight 92 Body Mass Index (BMI) 28.9 Weight Status Overweight GI Symptoms GI Symptoms None Last BM 09/01 Difficult in: None Skin Integrity/Comment: bruise Estimated Nutritional Goals BEE in Kcals: Adj wt of IBW Calories/Kcals/Kg 25-30 Kcals Calculated 8386-4397 Protein: Adj wt of IBW Protein g/k Protein Calculated 46 Fluid: ml 1150-1380ml (1ml/kcal) Nutritional Problem No current Nutrition Prob Problem N/A Malnutrition Alert Protein-Calorie Malnutrition N/A Is there a minimum of two criteria No selected? Query Text:Check all the applicable criteria. A minimum of two criteria are recommended for diagnosis of either severe or non-severe malnutrition. Intervention/Recommendation Comments 1. Continue with [facility] soft ground diet as ordered. Please assit pt with feeding at each meal. 2. Monitor PO intake, wt, labs and skin integrity 3. F/U as low risk in 7 days, 09/09, PO check 09/06 Expected Outcomes/Goals Expected Outcomes/Goals 1. PO intake to meet at least 75% of nutritional needs. 2. Wt stability, skin to remain intact, labs to approach WNL.
--- NOTE | 2017-09-05 17:15 | Progress Notes ---
DATE: 09/05/2017 SUBJECTIVE: Staff was spoken to. The patient is interviewed. Mood is noted to be irritable. Affect is constricted. The patient is stating that the medication is making her too sleepy. No side effects to the medications are noted so far. The patient is currently on 2 mg of the Risperdal and is going to be decreased to 1 mg today and the patient is going to be followed up with the supportive therapy. ASSESSMENT: The patient is depressed and paranoid. PLAN: To continue the patient with the supportive therapy and followup. JOB# [id number]
[2017-09-05] MEDS: Albuterol/Ipratropium Neb 3 ML AERS HHN PRN (19:51)
[2017-09-05] MEDS: Magnesium Hydroxide (MOM) 30 mL UDC PO SCH (20:58)
[2017-09-06] MEDS: Levothyroxine 0.025 Mg Tab PO SCH (06:50)
[2017-09-06] MEDS: Ipratropium Neb 0.5 mg/2.5 mL UD IH SCH ×4 (07:28→20:14)
[2017-09-06] MEDS: Albuterol Nebulizer 2.5mg/3mL HHN SCH ×4 (07:28→20:15)
[2017-09-06] MEDS: Multivitamin Tab PO SCH (09:57)
[2017-09-06] MEDS: Lactobacillus Rhamnosus GG 15 Billion CFU CAP.SPRINK PO SCH (09:58)
--- NOTE | 2017-09-06 12:17 | Internal Medicine Prog Note ---
Internal Medicine Subjective - Subjective Service Date: 09/06/17 Patient is:: awake, verbal, interactive, confused Patient Complaints of:: congestion Per staff patient has:: no adverse event, no episodes of fall, noncompliant, tolerating meds Internal Medicine Objective - Results Result Diagrams: 09/03/17 06:22 09/03/17 06:22 Recent Labs: Laboratory Last Values WBC 7.1 Th/cmm (4.8-10.8) 09/03/17 06:22 RBC 4.23 Mil/cmm (3.80-5.10) 09/03/17 06:22 Hgb 13.3 gm/dL (12-16) 09/03/17 06:22 Hct 39.6 % (41.0-60) L 09/03/17 06:22 MCV 93.5 fl (81-100) 09/03/17 06:22 MCH 31.5 pg (27.0-31.0) H 09/03/17 06: MCHC Differential 33.7 pg (28.0-36.0) 09/03/17 06:22 RDW 14.3 % (11.5-20.0) 09/03/17 06:22 Plt Count 162 Th/cmm (150-400) 09/03/17 06:22 MPV 6.6 fl 09/03/17 06:22 Neutrophils % 77.3 % (40.0-80.0) 09/03/17 06:22 Lymphocytes % 12.1 % (20.0-50.0) L 09/03/17 06: Monocytes % 8.3 % (2.0-10.0) 09/03/17 06:22 Eosinophils % 1.0 % (0.0-5.0) 09/03/17 06:22 Basophils % 1.3 % (0.0-2.0) 09/03/17 06:22 Sodium 139 mEq/L (136-145) 09/03/17 06:22 Potassium 4.3 mEq/L (3.5-5.1) 09/03/17 06:22 Chloride 102 mEq/L (98-107) 09/03/17 06:22 Carbon Dioxide 33.5 mEq/L (21.0-31.0) H 09/03/17 06:22 Anion Gap 7.8 (7.0-16.0) 09/03/17 06:22 BUN 22 mg/dL (7-25) 09/03/17 06:22 Creatinine 0.4 mg/dL (0.6-1.2) L 09/03/17 06:22 Est GFR ( Amer) > 60.0 ml/min (>90) 09/03/17 06:22 Est GFR (Non-Af Amer) > 60.0 ml/min 09/03/17 06:22 BUN/Creatinine Ratio 55.0 09/03/17 06:22 Glucose 77 mg/dL (70-105) 09/03/17 06:22 Hemoglobin A1c % 4.9 % (4.0-6.0) 08/30/17 02:05 Calcium 8.1 mg/dL (8.6-10.3) L 09/03/17 06:22 Total Bilirubin 0.3 mg/dL (0.3-1.0) 09/03/17 06:22 AST 14 U/L (13-39) 09/03/17 06:22 ALT 8 U/L (7-52) 09/03/17 06:22 Alkaline Phosphatase 50 U/L (34-104) 09/03/17 06:22 Total Protein 5.7 gm/dL (6.0-8.3) L 09/03/17 06:22 Albumin 2.9 gm/dL (3.7-5.3) L 09/03/17 06:22 Globulin 2.8 gm/dL 09/03/17 06:22 Albumin/Globulin Ratio 1.0 (1.0-1.8) 09/03/17 06:22 Triglycerides 87 mg/dL (<150) 08/30/17 02:05 Cholesterol 186 mg/dL (<200) 08/30/17 02:05 LDL Cholesterol Direct 138 mg/dL (75-193) 08/30/17 02:05 HDL Cholesterol 43 mg/dL (23-92) 08/30/17 02:05 TSH 5.67 uIU/ml (0.34-5.60) H 08/30/17 02:05 Valproic Acid 94.5 ug/mL (50.0-100.0) 09/03/17 06:22 RPR NONREACTIVE (NONREACTIVE) 08/30/17 02:05 - Physical Exam Vitals and I&O: Vital Signs Temp 98.9 F 09/06/17 06:27 Pulse 69 09/06/17 11:12 Resp 18 09/06/17 11:12 BP 101/57 09/06/17 06:27 Pulse Ox 98 09/06/17 11:12 Intake & Output 09/05/17 09/06/17 09/06/17 18:59 06:59 18:59 Intake Total 800 180 Balance 800 180 Intake: Oral 800 180 Other: # Voids 5 2 # Bowel Movements 2 0 Active Medications: Current Medications Acetaminophen (Tylenol) 650 mg PO Q6H PRN PRN Reason: Pain or Fever >101 Stop: 10/29/17 06:34 Albuterol Sulfate (Albuterol 2.5mg/3ml Neb Ud) 2.5 mg HHN QIDRT [facility] Stop: 10/31/17 14:59 Last Admin: 09/06/17 11:12 Dose: 2.5 mg Albuterol/Ipratropium (Duoneb Neb) 3 ml HHN Q6HRT PRN PRN Reason: Wheezing Stop: 10/30/17 19:53 Last Admin: 09/05/17 19:51 Dose: 3 ml Alprazolam (Xanax) 0.5 mg PO Q8HR PRN; Protocol PRN Reason: Anxiety Stop: 10/29/17 12:59 Ascorbic Acid (Vitamin C) 500 mg PO DAILY [facility] Stop: 10/29/17 08:59 Last Admin: 09/06/17 09:55 Dose: 500 mg Bisacodyl (Dulcolax 10 Mg Supp) 10 mg RC DAILY PRN PRN Reason: Constipation Stop: 10/29/17 06:34 Fluoxetine HCl (Prozac) 20 mg PO DAILY [facility] PRN Reason: Protocol Stop: 11/02/17 14:37 Last Admin: 09/06/17 09:57 Dose: 20 mg Guaifenesin (Robitussin) 200 mg PO Q4H PRN PRN Reason: Cough or Congestion Stop: 11/01/17 21:41 Last Admin: 09/04/17 06:57 Dose: 200 mg Ipratropium [place] (Atrovent Neb 0.5mg/2.5ml) 0.5 mg HHN Q2HRT PRN PRN Reason: Shortness of Breath or Wheeze Stop: 10/30/17 19:54 Ipratropium [place] (Atrovent Neb 0.5mg/2.5ml) 0.5 mg IH QIDRT [facility] Stop: 10/31/17 14:59 Last Admin: 09/06/17 11:11 Dose: 0.5 mg Lactobacillus Rhamnosus (Culturelle 15b) 1 each PO DAILY [facility] Stop: 10/29/17 08:59 Last Admin: 09/06/17 09:58 Dose: 1 each Levetiracetam (Keppra) 500 mg PO BID [facility] Stop: 10/29/17 08:59 Last Admin: 09/06/17 09:57 Dose: 500 mg Levothyroxine Sodium (Synthroid) 0.025 mg PO QDAC [facility] Stop: 10/30/17 07:29 Last Admin: 09/06/17 06:50 Dose: 0.025 mg Lorazepam (Ativan) 0.5 mg PO Q4HR PRN; Protocol PRN Reason: Anxiety Stop: 09/29/17 03:59 Last Admin: 08/30/17 10:09 Dose: 0.5 mg Magnesium Hydroxide (Milk Of Magnesia) 30 ml PO HS [facility] Stop: 10/29/17 20:59 Last Admin: 09/05/17 20:58 Dose: Not Given Midodrine (Proamatine) 10 mg PO TID [facility] Stop: 10/29/17 08:59 Last Admin: 09/06/17 09:56 Dose: 10 mg Multivitamins/Vitamin C (Theragran) 1 tab PO DAILY [facility] Stop: 10/29/17 08:59 Last Admin: 09/06/17 09:57 Dose: 1 tab Mupirocin (Bactroban Oint) 1 appl NS BID [facility] Stop: 09/07/17 17:01 Last Admin: 09/05/17 17:38 Dose: 1 appl Risperidone (Risperdal) 1 mg PO HS [facility] PRN Reason: Protocol Stop: 11/04/17 20:59 Last Admin: 09/05/17 20:58 Dose: 1 mg Zolpidem Tartrate (Ambien) 5 mg PO HS PRN PRN Reason: Insomnia Stop: 10/29/17 03:59 General: demented HEENT: NC/AT, PERRLA Neck: Supple Lungs: congested, rales Abdomen: soft, non-tender, non-distended, positive bowel sound Extremities: excoriation, deformity, atrophy Neurological: no change Internal Medicine Assmt/Plan - Assessment Assessment: mild protein calorie malnutrition dementia asthma gerd blindness depression anxiety djd acute renal insufficiency dm - Plan Plan: monitor s/sx of hypo/hyperglycemia fall precautions continue current plan of care Nutritional Asmnt/Malnutr-PDOC - Dietary Evaluation Malnutrition Findings (Please click <Entered> for more info): Nutritional Asmnt/Malnutrition Start: 09/02/17 15: 47 Text: Status: Active Freq: Document 09/02/17 15:53 LCHENG (Rec: 09/02/17 16:00 LCHENG [email or web address]) Nutritional Asmnt/Malnutrition Patient General Information Nutritional Screening Moderate Risk Diagnosis psychosis NOS Pertinent Medical Hx/Surgical Hx asthma, COPD, GERD, dementia, bilateral eye blindness, depression, anxiety, DJD, renal insufficiency, DM, PNA Subjective Information Pt seen sitting up in bed at time of visit. Spoke with ORDER RUNNER, ORDER RUNNER reported pt consumed 100% of lunch with feeding. Pt needs feeding assist d/t bilateral eye blindness. Per EMR, PO intake 5-100%. Current Diet Order/ Nutrition Support [facility] soft ground Pertinent Medications vit C, culturelle, synthroid, theragran Pertinent Labs 08/30 Na 133, Cl 97, glucose 92 , A1c 4.9 Nutritional Hx/Data Height 4 ft 8 in Height (Calculated Centimeters) 142.2 Current Weight (lbs) 129 lb Weight (Calculated Kilograms) 58.5 Weight (Calculated Grams) 11260.4 [place] Body Weight 92 Body Mass Index (BMI) 28.9 Weight Status Overweight GI Symptoms GI Symptoms None Last BM 09/01 Difficult in: None Skin Integrity/Comment: bruise Estimated Nutritional Goals BEE in Kcals: Adj wt of IBW Calories/Kcals/Kg 25-30 Kcals Calculated 2993-7257 Protein: Adj wt of IBW Protein g/k Protein Calculated 46 Fluid: ml 1150-1380ml (1ml/kcal) Nutritional Problem No current Nutrition Prob Problem N/A Malnutrition Alert Protein-Calorie Malnutrition N/A Is there a minimum of two criteria No selected? Query Text:Check all the applicable criteria. A minimum of two criteria are recommended for diagnosis of either severe or non-severe malnutrition. Intervention/Recommendation Comments 1. Continue with [facility] soft ground diet as ordered. Please assit pt with feeding at each meal. 2. Monitor PO intake, wt, labs and skin integrity 3. F/U as low risk in 7 days, 09/09, PO check 09/06 Expected Outcomes/Goals Expected Outcomes/Goals 1. PO intake to meet at least 75% of nutritional needs. 2. Wt stability, skin to remain intact, labs to approach WNL.
[2017-09-06] MEDS: Magnesium Hydroxide (MOM) 30 mL UDC PO SCH ×2 (20:45→20:57)
--- NOTE | 2017-09-06 21:53 | Progress Notes ---
DATE: 09/06/2017 SUBJECTIVE: Staff was spoken to. The patient is interviewed. Mood is noted to be irritable. Affect is constricted. The patient's coping skills are noted to be still poor. The patient is reported to have been screaming and yelling earlier today. The patient has no insight into her illness because of the fact that the patient is too drowsy the dose of the medications have been gradually decreased. The patient is currently on the fluoxetine 20 mg in the morning and the patient is getting the Risperdal 1 mg at bedtime. The patient is going to be closely monitored with these medications. The patient is encouraged to participate in the groups and verbalize the concerns rather than to act out. ASSESSMENT: The patient is still psychotic. PLAN: To continue the patient with the supportive therapy, closely monitor the patient and the patient is going to be encouraged to participate in the groups and verbalize the concerns rather than to act out. JOB# [id number]
[2017-09-07] MEDS: Levothyroxine 0.025 Mg Tab PO SCH (06:32)
[2017-09-07] MEDS: Albuterol Nebulizer 2.5mg/3mL HHN SCH ×4 (07:12→19:33)
[2017-09-07] MEDS: Ipratropium Neb 0.5 mg/2.5 mL UD IH SCH ×4 (07:12→19:33)
[2017-09-07] MEDS: Lactobacillus Rhamnosus GG 15 Billion CFU CAP.SPRINK PO SCH (08:54)
[2017-09-07] MEDS: Multivitamin Tab PO SCH (08:54)
--- NOTE | 2017-09-07 14:27 | Internal Medicine Prog Note ---
Internal Medicine Subjective - Subjective Patient seen and examined:: with staff, chart reviewed Patient is:: awake, verbal, interactive, confused Patient Complaints of:: congestion Per staff patient has:: no adverse event, no episodes of fall, noncompliant, tolerating meds Internal Medicine Objective - Results Result Diagrams: 09/03/17 06:22 09/03/17 06:22 Recent Labs: Laboratory Last Values WBC 7.1 Th/cmm (4.8-10.8) 09/03/17 06:22 RBC 4.23 Mil/cmm (3.80-5.10) 09/03/17 06:22 Hgb 13.3 gm/dL (12-16) 09/03/17 06:22 Hct 39.6 % (41.0-60) L 09/03/17 06:22 MCV 93.5 fl (81-100) 09/03/17 06:22 MCH 31.5 pg (27.0-31.0) H 09/03/17 06:22 MCHC Differential 33.7 pg (28.0-36.0) 09/03/17 06:22 RDW 14.3 % (11.5-20.0) 09/03/17 06:22 Plt Count 162 Th/cmm (150-400) 09/03/17 06:22 MPV 6.6 fl 09/03/17 06:22 Neutrophils % 77.3 % (40.0-80.0) 09/03/17 06:22 Lymphocytes % 12.1 % (20.0-50.0) L 09/03/17 06: Monocytes % 8.3 % (2.0-10.0) 09/03/17 06:22 Eosinophils % 1.0 % (0.0-5.0) 09/03/17 06:22 Basophils % 1.3 % (0.0-2.0) 09/03/17 06:22 Sodium 139 mEq/L (136-145) 09/03/17 06:22 Potassium 4.3 mEq/L (3.5-5.1) 09/03/17 06:22 Chloride 102 mEq/L (98-107) 09/03/17 06:22 Carbon Dioxide 33.5 mEq/L (21.0-31.0) H 09/03/17 06:22 Anion Gap 7.8 (7.0-16.0) 09/03/17 06:22 BUN 22 mg/dL (7-25) 09/03/17 06:22 Creatinine 0.4 mg/dL (0.6-1.2) L 09/03/17 06:22 Est GFR ( Amer) > 60.0 ml/min (>90) 09/03/17 06:22 Est GFR (Non-Af Amer) > 60.0 ml/min 09/03/17 06:22 BUN/Creatinine Ratio 55.0 09/03/17 06:22 Glucose 77 mg/dL (70-105) 09/03/17 06:22 Hemoglobin A1c % 4.9 % (4.0-6.0) 08/30/17 02:05 Calcium 8.1 mg/dL (8.6-10.3) L 09/03/17 06:22 Total Bilirubin 0.3 mg/dL (0.3-1.0) 09/03/17 06:22 AST 14 U/L (13-39) 09/03/17 06:22 ALT 8 U/L (7-52) 09/03/17 06:22 Alkaline Phosphatase 50 U/L (34-104) 09/03/17 06:22 Total Protein 5.7 gm/dL (6.0-8.3) L 09/03/17 06:22 Albumin 2.9 gm/dL (3.7-5.3) L 09/03/17 06:22 Globulin 2.8 gm/dL 09/03/17 06:22 Albumin/Globulin Ratio 1.0 (1.0-1.8) 09/03/17 06:22 Triglycerides 87 mg/dL (<150) 08/30/17 02:05 Cholesterol 186 mg/dL (<200) 08/30/17 02:05 LDL Cholesterol Direct 138 mg/dL (75-193) 08/30/17 02:05 HDL Cholesterol 43 mg/dL (23-92) 08/30/17 02:05 TSH 5.67 uIU/ml (0.34-5.60) H 08/30/17 02:05 Valproic Acid 94.5 ug/mL (50.0-100.0) 09/03/17 06:22 RPR NONREACTIVE (NONREACTIVE) 08/30/17 02:05 - Physical Exam Vitals and I&O: Vital Signs Temp 98 F 09/07/17 06:46 Pulse 76 09/07/17 11:18 Resp 18 09/07/17 11:18 BP 103/54 09/07/17 06:46 Pulse Ox 96 09/07/17 11:18 Intake & Output 09/06/17 09/07/17 09/07/17 18:59 06:59 18:59 Intake Total 60 Balance 60 Intake: Oral 60 Other: # Voids 3 Active Medications: Current Medications Acetaminophen (Tylenol) 650 mg PO Q6H PRN PRN Reason: Pain or Fever >101 Stop: 10/29/17 06:34 Albuterol Sulfate (Albuterol 2.5mg/3ml Neb Ud) 2.5 mg HHN QIDRT [facility] Stop: 10/31/17 14:59 Last Admin: 09/07/17 11:17 Dose: 2.5 mg Albuterol/Ipratropium (Duoneb Neb) 3 ml HHN Q6HRT PRN PRN Reason: Wheezing Stop: 10/30/17 19:53 Last Admin: 09/05/17 19:51 Dose: 3 ml Alprazolam (Xanax) 0.5 mg PO Q8HR PRN; Protocol PRN Reason: Anxiety Stop: 10/29/17 12:59 Ascorbic Acid (Vitamin C) 500 mg PO DAILY [facility] Stop: 10/29/17 08:59 Last Admin: 09/07/17 08:54 Dose: 500 mg Bisacodyl (Dulcolax 10 Mg Supp) 10 mg RC DAILY PRN PRN Reason: Constipation Stop: 10/29/17 06:34 Fluoxetine HCl (Prozac) 20 mg PO DAILY [facility]; Protocol Stop: 11/02/17 14:37 Last Admin: 09/07/17 08:54 Dose: 20 mg Guaifenesin (Robitussin) 200 mg PO Q4H PRN PRN Reason: Cough or Congestion Stop: 11/01/17 21:41 Last Admin: 09/04/17 06:57 Dose: 200 mg Ipratropium [place] (Atrovent Neb 0.5mg/2.5ml) 0.5 mg HHN Q2HRT PRN PRN Reason: Shortness of Breath or Wheeze Stop: 10/30/17 19:54 Ipratropium [place] (Atrovent Neb 0.5mg/2.5ml) 0.5 mg IH QIDRT [facility] Stop: 10/31/17 14:59 Last Admin: 09/07/17 11:17 Dose: 0.5 mg Lactobacillus Rhamnosus (Culturelle 15b) 1 each PO DAILY [facility] Stop: 10/29/17 08:59 Last Admin: 09/07/17 08:54 Dose: 1 each Levetiracetam (Keppra) 500 mg PO BID [facility] Stop: 10/29/17 08:59 Last Admin: 09/07/17 08:54 Dose: 500 mg Levothyroxine Sodium (Synthroid) 0.025 mg PO QDAC [facility] Stop: 10/30/17 07:29 Last Admin: 09/07/17 06:32 Dose: 0.025 mg Lorazepam (Ativan) 0.5 mg PO Q4HR PRN; Protocol PRN Reason: Anxiety Stop: 09/29/17 03:59 Last Admin: 08/30/17 10:09 Dose: 0.5 mg Magnesium Hydroxide (Milk Of Magnesia) 30 ml PO HS [facility] Stop: 10/29/17 20:59 Last Admin: 09/06/17 20:57 Dose: Not Given Midodrine (Proamatine) 10 mg PO TID [facility] Stop: 10/29/17 08:59 Last Admin: 09/07/17 13:41 Dose: 10 mg Multivitamins/Vitamin C (Theragran) 1 tab PO DAILY [facility] Stop: 10/29/17 08:59 Last Admin: 09/07/17 08:54 Dose: 1 tab Mupirocin (Bactroban Oint) 1 appl NS BID [facility] Stop: 09/07/17 17:01 Last Admin: 09/07/17 08:54 Dose: 1 appl Risperidone (Risperdal) 1 mg PO HS [facility]; Protocol Stop: 11/04/17 20:59 Last Admin: 09/06/17 20:46 Dose: 1 mg Zolpidem Tartrate (Ambien) 5 mg PO HS PRN PRN Reason: Insomnia Stop: 10/29/17 03:59 General: demented HEENT: NC/AT, PERRLA Neck: Supple Lungs: congested, rales Abdomen: soft, non-tender, non-distended, positive bowel sound Extremities: excoriation, deformity, atrophy Neurological: no change Internal Medicine Assmt/Plan - Assessment Assessment: Assessment Assessment: mild protein calorie malnutrition dementia asthma gerd blindness depression anxiety djd acute renal insufficiency dm - Plan Plan: monitor s/sx of hypo/hyperglycemia fall precautions continue current plan of care - Plan Plan: labs noted and cxr lindsey rn Nutritional Asmnt/Malnutr-PDOC - Dietary Evaluation Malnutrition Findings (Please click <Entered> for more info): Nutritional Asmnt/Malnutrition Start: 09/02/17 15: 47 Text: Status: Active Freq: Protocol: Document 09/02/17 15:53 LCHENG (Rec: 09/02/17 16:00 LCHENG [email or web address]) Nutritional Asmnt/Malnutrition Patient General Information Nutritional Screening Moderate Risk Diagnosis psychosis NOS Pertinent Medical Hx/Surgical Hx asthma, COPD, GERD, dementia, bilateral eye blindness, depression, anxiety, DJD, renal insufficiency, DM, PNA Subjective Information Pt seen sitting up in bed at time of visit. Spoke with SPORTS ANNOUNCER, SPORTS ANNOUNCER reported pt consumed 100% of lunch with feeding. Pt needs feeding assist d/t bilateral eye blindness. Per EMR, PO intake 5-100%. Current Diet Order/ Nutrition Support [facility] Pertinent Medications vit C, culturelle, synthroid, theragran Pertinent Labs 08/30 Na 133, Cl 97, glucose 92 , A1c 4.9 Nutritional Hx/Data Height 1.42 m Height (Calculated Centimeters) 142.2 Current Weight (lbs) 58.513 kg Weight (Calculated Kilograms) 58.5 Weight (Calculated Grams) 16062.4 [place] Body Weight 92 Body Mass Index (BMI) 28.9 Weight Status Overweight GI Symptoms GI Symptoms None Last BM 09/01 Difficult in: None Skin Integrity/Comment: bruise Estimated Nutritional Goals BEE in Kcals: Adj wt of IBW Calories/Kcals/Kg 25-30 Kcals Calculated 1762-5698 Protein: Adj wt of IBW Protein g/k Protein Calculated 46 Fluid: ml 1150-1380ml (1ml/kcal) Nutritional Problem No current Nutrition Prob Problem N/A Malnutrition Alert Protein-Calorie Malnutrition N/A Is there a minimum of two criteria No selected? Query Text:Check all the applicable criteria. A minimum of two criteria are recommended for diagnosis of either severe or non-severe malnutrition. Intervention/Recommendation Comments 1. Continue with [facility] soft [facility] diet as ordered. Please assit pt with feeding at each meal. 2. Monitor PO intake, wt, labs and skin integrity 3. F/U as low risk in 7 days, 09/09, PO check 09/06 Expected Outcomes/Goals Expected Outcomes/Goals 1. PO intake to meet at least 75% of nutritional needs. 2. Wt stability, skin to remain intact, labs to approach WNL.
[2017-09-07] MEDS: Magnesium Hydroxide (MOM) 30 mL UDC PO SCH (20:49)
--- NOTE | 2017-09-08 00:22 | Progress Notes ---
DATE: 09/07/2017 SUBJECTIVE: Staff was spoken to. The patient is interviewed. Mood is noted to be irritable. Affect is constricted. Insight and judgment noted to be still impaired. Impulse control is noted to be poor. The patient is reported to be screaming and yelling, but these episodes have been coming down compared to before. No side effects to the medications are noted. The patient is at this time being closely monitored and the doses of the antidepressant medications have been decreased. ASSESSMENT: The patient is still impulsive. PLAN: To continue the patient with the supportive therapy and followup. JOB# [id number]
[2017-09-08] MEDS: Levothyroxine 0.025 Mg Tab PO SCH (06:44)
[2017-09-08] MEDS: Albuterol Nebulizer 2.5mg/3mL HHN SCH ×4 (06:55→19:23)
[2017-09-08] MEDS: Ipratropium Neb 0.5 mg/2.5 mL UD IH SCH ×4 (06:55→19:24)
[2017-09-08] MEDS: Multivitamin Tab PO SCH (08:29)
[2017-09-08] MEDS: Lactobacillus Rhamnosus GG 15 Billion CFU CAP.SPRINK PO SCH (08:29)
--- NOTE | 2017-09-08 15:56 | Internal Medicine Prog Note ---
Internal Medicine Subjective - Subjective Service Date: 09/08/17 Patient is:: awake, verbal, interactive, confused Patient Complaints of:: congestion Per staff patient has:: no adverse event, no episodes of fall, noncompliant, tolerating meds Internal Medicine Objective - Results Result Diagrams: 09/03/17 06:22 09/03/17 06:22 Recent Labs: Laboratory Last Values WBC 7.1 Th/cmm (4.8-10.8) 09/03/17 06:22 RBC 4.23 Mil/cmm (3.80-5.10) 09/03/17 06:22 Hgb 13.3 gm/dL (12-16) 09/03/17 06:22 Hct 39.6 % (41.0-60) L 09/03/17 06:22 MCV 93.5 fl (81-100) 09/03/17 06:22 MCH 31.5 pg (27.0-31.0) H 09/03/17 06: MCHC Differential 33.7 pg (28.0-36.0) 09/03/17 06:22 RDW 14.3 % (11.5-20.0) 09/03/17 06:22 Plt Count 162 Th/cmm (150-400) 09/03/17 06:22 MPV 6.6 fl 09/03/17 06:22 Neutrophils % 77.3 % (40.0-80.0) 09/03/17 06:22 Lymphocytes % 12.1 % (20.0-50.0) L 09/03/17 06: Monocytes % 8.3 % (2.0-10.0) 09/03/17 06:22 Eosinophils % 1.0 % (0.0-5.0) 09/03/17 06:22 Basophils % 1.3 % (0.0-2.0) 09/03/17 06:22 Sodium 139 mEq/L (136-145) 09/03/17 06:22 Potassium 4.3 mEq/L (3.5-5.1) 09/03/17 06:22 Chloride 102 mEq/L (98-107) 09/03/17 06:22 Carbon Dioxide 33.5 mEq/L (21.0-31.0) H 09/03/17 06:22 Anion Gap 7.8 (7.0-16.0) 09/03/17 06:22 BUN 22 mg/dL (7-25) 09/03/17 06:22 Creatinine 0.4 mg/dL (0.6-1.2) L 09/03/17 06:22 Est GFR ( Amer) > 60.0 ml/min (>90) 09/03/17 06:22 Est GFR (Non-Af Amer) > 60.0 ml/min 09/03/17 06:22 BUN/Creatinine Ratio 55.0 09/03/17 06:22 Glucose 77 mg/dL (70-105) 09/03/17 06:22 Hemoglobin A1c % 4.9 % (4.0-6.0) 08/30/17 02:05 Calcium 8.1 mg/dL (8.6-10.3) L 09/03/17 06:22 Total Bilirubin 0.3 mg/dL (0.3-1.0) 09/03/17 06:22 AST 14 U/L (13-39) 09/03/17 06:22 ALT 8 U/L (7-52) 09/03/17 06:22 Alkaline Phosphatase 50 U/L (34-104) 09/03/17 06:22 Total Protein 5.7 gm/dL (6.0-8.3) L 09/03/17 06:22 Albumin 2.9 gm/dL (3.7-5.3) L 09/03/17 06:22 Globulin 2.8 gm/dL 09/03/17 06:22 Albumin/Globulin Ratio 1.0 (1.0-1.8) 09/03/17 06:22 Triglycerides 87 mg/dL (<150) 08/30/17 02:05 Cholesterol 186 mg/dL (<200) 08/30/17 02:05 LDL Cholesterol Direct 138 mg/dL (75-193) 08/30/17 02:05 HDL Cholesterol 43 mg/dL (23-92) 08/30/17 02:05 TSH 5.67 uIU/ml (0.34-5.60) H 08/30/17 02:05 Valproic Acid 94.5 ug/mL (50.0-100.0) 09/03/17 06:22 RPR NONREACTIVE (NONREACTIVE) 08/30/17 02:05 - Physical Exam Vitals and I&O: Vital Signs Temp 98.9 F 09/08/17 15:31 Pulse 75 09/08/17 15:31 Resp 19 09/08/17 15:31 BP 96/56 09/08/17 15:31 Pulse Ox 98 09/08/17 15:31 Intake & Output 09/07/17 09/08/17 09/08/17 18:59 06:59 18:59 Intake Total 1200 120 Balance 1200 120 Intake: Oral 1200 120 Other: # Voids 3 # Bowel Movements 1 Active Medications: Current Medications Acetaminophen (Tylenol) 650 mg PO Q6H PRN PRN Reason: Pain or Fever >101 Stop: 10/29/17 06:34 Albuterol Sulfate (Albuterol 2.5mg/3ml Neb Ud) 2.5 mg HHN QIDRT [facility] Stop: 10/31/17 14:59 Last Admin: 09/08/17 14:01 Dose: 2.5 mg Albuterol/Ipratropium (Duoneb Neb) 3 ml HHN Q6HRT PRN PRN Reason: Wheezing Stop: 10/30/17 19:53 Last Admin: 09/05/17 19:51 Dose: 3 ml Alprazolam (Xanax) 0.5 mg PO Q8HR PRN; Protocol PRN Reason: Anxiety Stop: 10/29/17 12:59 Ascorbic Acid (Vitamin C) 500 mg PO DAILY [facility] Stop: 10/29/17 08:59 Last Admin: 09/08/17 08:29 Dose: 500 mg Bisacodyl (Dulcolax 10 Mg Supp) 10 mg RC DAILY PRN PRN Reason: Constipation Stop: 10/29/17 06:34 Fluoxetine HCl (Prozac) 20 mg PO DAILY [facility]; Protocol Stop: 11/02/17 14:37 Last Admin: 09/08/17 12:36 Dose: 20 mg Guaifenesin (Robitussin) 200 mg PO Q4H PRN PRN Reason: Cough or Congestion Stop: 11/01/17 21:41 Last Admin: 09/04/17 06:57 Dose: 200 mg Ipratropium [place] (Atrovent Neb 0.5mg/2.5ml) 0.5 mg HHN Q2HRT PRN PRN Reason: Shortness of Breath or Wheeze Stop: 10/30/17 19:54 Ipratropium [place] (Atrovent Neb 0.5mg/2.5ml) 0.5 mg IH QIDRT [facility] Stop: 10/31/17 14:59 Last Admin: 09/08/17 14:00 Dose: 0.5 mg Lactobacillus Rhamnosus (Culturelle 15b) 1 each PO DAILY [facility] Stop: 10/29/17 08:59 Last Admin: 09/08/17 08:29 Dose: 1 each Levetiracetam (Keppra) 500 mg PO BID [facility] Stop: 10/29/17 08:59 Last Admin: 09/08/17 08:32 Dose: 500 mg Levothyroxine Sodium (Synthroid) 0.025 mg PO QDAC [facility] Stop: 10/30/17 07:29 Last Admin: 09/08/17 06:44 Dose: 0.025 mg Lorazepam (Ativan) 0.5 mg PO Q4HR PRN; Protocol PRN Reason: Anxiety Stop: 09/29/17 03:59 Last Admin: 08/30/17 10:09 Dose: 0.5 mg Magnesium Hydroxide (Milk Of Magnesia) 30 ml PO HS [facility] Stop: 10/29/17 20:59 Last Admin: 09/07/17 20:49 Dose: 30 ml Midodrine (Proamatine) 10 mg PO TID [facility] Stop: 10/29/17 08:59 Last Admin: 09/08/17 14:23 Dose: 10 mg Multivitamins/Vitamin C (Theragran) 1 tab PO DAILY [facility] Stop: 10/29/17 08:59 Last Admin: 09/08/17 08:29 Dose: 1 tab Risperidone (Risperdal) 1 mg PO HS [facility]; Protocol Stop: 11/04/17 20:59 Last Admin: 09/07/17 20:50 Dose: 1 mg Zolpidem Tartrate (Ambien) 5 mg PO HS PRN PRN Reason: Insomnia Stop: 10/29/17 03:59 General: demented HEENT: NC/AT, PERRLA Neck: Supple Lungs: congested, rales Abdomen: soft, non-tender, non-distended, positive bowel sound Extremities: excoriation, deformity, atrophy Neurological: no change Internal Medicine Assmt/Plan - Assessment Assessment: mild protein calorie malnutrition dementia asthma gerd blindness depression anxiety djd acute renal insufficiency dm - Plan Plan: monitor s/sx of hypo/hyperglycemia fall precautions continue current plan of care Nutritional Asmnt/Malnutr-PDOC - Dietary Evaluation Malnutrition Findings (Please click <Entered> for more info): Nutritional Asmnt/Malnutrition Start: 09/02/17 15: 47 Text: Status: Active Freq: Protocol: Document 09/02/17 15:53 GILESKRUNAL (Rec: 09/02/17 16:00 MICHAEL [email or web address]) Nutritional Asmnt/Malnutrition Patient General Information Nutritional Screening Moderate Risk Diagnosis psychosis NOS Pertinent Medical Hx/Surgical Hx asthma, COPD, GERD, dementia, bilateral eye blindness, depression, anxiety, DJD, renal insufficiency, DM, PNA Subjective Information Pt seen sitting up in bed at time of visit. Spoke with VAULT MAKER, VAULT MAKER reported pt consumed 100% of lunch with feeding. Pt needs feeding assist d/t bilateral eye blindness. Per EMR, PO intake 5-100%. Current Diet Order/ Nutrition Support [facility] Pertinent Medications vit C, culturelle, synthroid, theragran Pertinent Labs 08/30 Na 133, Cl 97, glucose 92 , A1c 4.9 Nutritional Hx/Data Height 4 ft 8 in Height (Calculated Centimeters) 142.2 Current Weight (lbs) 129 lb Weight (Calculated Kilograms) 58.5 Weight (Calculated Grams) 16480.4 [employer] Body Weight 92 Body Mass Index (BMI) 28.9 Weight Status Overweight GI Symptoms GI Symptoms None Last BM 09/01 Difficult in: None Skin Integrity/Comment: bruise Estimated Nutritional Goals BEE in Kcals: Adj wt of IBW Calories/Kcals/Kg 25-30 Kcals Calculated 6280-4924 Protein: Adj wt of IBW Protein g/k Protein Calculated 46 Fluid: ml 1150-1380ml (1ml/kcal) Nutritional Problem No current Nutrition Prob Problem N/A Malnutrition Alert Protein-Calorie Malnutrition N/A Is there a minimum of two criteria No selected? Query Text:Check all the applicable criteria. A minimum of two criteria are recommended for diagnosis of either severe or non-severe malnutrition. Intervention/Recommendation Comments 1. Continue with [facility] soft ground diet as ordered. Please assit pt with feeding at each meal. 2. Monitor PO intake, wt, labs and skin integrity 3. F/U as low risk in 7 days, 09/09, PO check 09/06 Expected Outcomes/Goals Expected Outcomes/Goals 1. PO intake to meet at least 75% of nutritional needs. 2. Wt stability, skin to remain intact, labs to approach WNL.
[2017-09-08] MEDS: Magnesium Hydroxide (MOM) 30 mL UDC PO SCH (20:14)
--- NOTE | 2017-09-09 03:25 | Progress Notes ---
DATE: 09/08/2017 SUBJECTIVE: Staff was spoken to. The patient is interviewed. Mood is noted to be irritable. Affect is constricted. The patient is getting easily frustrated. The patient compared to the time of the admission has been a little bit more alert, but the patient has been having problem with breathing and the patient is stating that she gets upset when people do not pay attention to her. The patient is currently on Risperdal 1 mg at bedtime and is on Prozac 20 mg in the morning and is able to tolerate. ASSESSMENT: The patient's impulsivity is resolving. PLAN: To continue the patient with supportive therapy and followup. JOB# [id number]
[2017-09-09] MEDS: Levothyroxine 0.025 Mg Tab PO SCH (06:41)
[2017-09-09] MEDS: Ipratropium Neb 0.5 mg/2.5 mL UD IH SCH ×4 (07:16→19:04)
[2017-09-09] MEDS: Albuterol Nebulizer 2.5mg/3mL HHN SCH ×4 (07:16→19:04)
[2017-09-09] MEDS: Lactobacillus Rhamnosus GG 15 Billion CFU CAP.SPRINK PO SCH (08:20)
[2017-09-09] MEDS: Multivitamin Tab PO SCH (08:20)
--- NOTE | 2017-09-09 14:08 | Internal Medicine Prog Note ---
Internal Medicine Subjective - Subjective Service Date: 09/09/17 Patient is:: awake, verbal, interactive, confused Patient Complaints of:: congestion Per staff patient has:: no adverse event, no episodes of fall, noncompliant, tolerating meds Internal Medicine Objective - Results Result Diagrams: 09/03/17 06:22 09/03/17 06:22 Recent Labs: Laboratory Last Values WBC 7.1 Th/cmm (4.8-10.8) 09/03/17 06:22 RBC 4.23 Mil/cmm (3.80-5.10) 09/03/17 06:22 Hgb 13.3 gm/dL (12-16) 09/03/17 06:22 Hct 39.6 % (41.0-60) L 09/03/17 06:22 MCV 93.5 fl (81-100) 09/03/17 06:22 MCH 31.5 pg (27.0-31.0) H 09/03/17 06: MCHC Differential 33.7 pg (28.0-36.0) 09/03/17 06:22 RDW 14.3 % (11.5-20.0) 09/03/17 06:22 Plt Count 162 Th/cmm (150-400) 09/03/17 06:22 MPV 6.6 fl 09/03/17 06:22 Neutrophils % 77.3 % (40.0-80.0) 09/03/17 06:22 Lymphocytes % 12.1 % (20.0-50.0) L 09/03/17 06: Monocytes % 8.3 % (2.0-10.0) 09/03/17 06:22 Eosinophils % 1.0 % (0.0-5.0) 09/03/17 06:22 Basophils % 1.3 % (0.0-2.0) 09/03/17 06:22 Sodium 139 mEq/L (136-145) 09/03/17 06:22 Potassium 4.3 mEq/L (3.5-5.1) 09/03/17 06:22 Chloride 102 mEq/L (98-107) 09/03/17 06:22 Carbon Dioxide 33.5 mEq/L (21.0-31.0) H 09/03/17 06:22 Anion Gap 7.8 (7.0-16.0) 09/03/17 06:22 BUN 22 mg/dL (7-25) 09/03/17 06:22 Creatinine 0.4 mg/dL (0.6-1.2) L 09/03/17 06:22 Est GFR ( Amer) > 60.0 ml/min (>90) 09/03/17 06:22 Est GFR (Non-Af Amer) > 60.0 ml/min 09/03/17 06:22 BUN/Creatinine Ratio 55.0 09/03/17 06:22 Glucose 77 mg/dL (70-105) 09/03/17 06:22 Hemoglobin A1c % 4.9 % (4.0-6.0) 08/30/17 02:05 Calcium 8.1 mg/dL (8.6-10.3) L 09/03/17 06:22 Total Bilirubin 0.3 mg/dL (0.3-1.0) 09/03/17 06:22 AST 14 U/L (13-39) 09/03/17 06:22 ALT 8 U/L (7-52) 09/03/17 06:22 Alkaline Phosphatase 50 U/L (34-104) 09/03/17 06:22 Total Protein 5.7 gm/dL (6.0-8.3) L 09/03/17 06:22 Albumin 2.9 gm/dL (3.7-5.3) L 09/03/17 06:22 Globulin 2.8 gm/dL 09/03/17 06:22 Albumin/Globulin Ratio 1.0 (1.0-1.8) 09/03/17 06:22 Triglycerides 87 mg/dL (<150) 08/30/17 02:05 Cholesterol 186 mg/dL (<200) 08/30/17 02:05 LDL Cholesterol Direct 138 mg/dL (75-193) 08/30/17 02:05 HDL Cholesterol 43 mg/dL (23-92) 08/30/17 02:05 TSH 5.67 uIU/ml (0.34-5.60) H 08/30/17 02:05 Valproic Acid 94.5 ug/mL (50.0-100.0) 09/03/17 06:22 RPR NONREACTIVE (NONREACTIVE) 08/30/17 02:05 - Physical Exam Vitals and I&O: Vital Signs Temp 98.9 F 09/08/17 15:31 Pulse 66 09/09/17 10:36 Resp 18 09/09/17 10:36 BP 96/56 09/08/17 15:31 Pulse Ox 98 09/09/17 10:36 Intake & Output 09/08/17 09/09/17 09/09/17 18:59 06:59 18:59 Intake Total 1200 Balance 1200 Intake: Oral 1200 Other: # Voids 3 # Bowel Movements 1 Active Medications: Current Medications Acetaminophen (Tylenol) 650 mg PO Q6H PRN PRN Reason: Pain or Fever >101 Stop: 10/29/17 06:34 Albuterol Sulfate (Albuterol 2.5mg/3ml Neb Ud) 2.5 mg HHN QIDRT [facility] Stop: 10/31/17 14:59 Last Admin: 09/09/17 10:35 Dose: 2.5 mg Albuterol/Ipratropium (Duoneb Neb) 3 ml HHN Q6HRT PRN PRN Reason: Wheezing Stop: 10/30/17 19:53 Last Admin: 09/05/17 19:51 Dose: 3 ml Alprazolam (Xanax) 0.5 mg PO Q8HR PRN; Protocol PRN Reason: Anxiety Stop: 10/29/17 12:59 Last Admin: 09/08/17 17:13 Dose: 0.5 mg Ascorbic Acid (Vitamin C) 500 mg PO DAILY [facility] Stop: 10/29/17 08:59 Last Admin: 09/09/17 08:20 Dose: 500 mg Bisacodyl (Dulcolax 10 Mg Supp) 10 mg RC DAILY PRN PRN Reason: Constipation Stop: 10/29/17 06:34 Fluoxetine HCl (Prozac) 20 mg PO DAILY [facility]; Protocol Stop: 11/02/17 14:37 Last Admin: 09/09/17 08:20 Dose: 20 mg Guaifenesin (Robitussin) 200 mg PO Q4H PRN PRN Reason: Cough or Congestion Stop: 11/01/17 21:41 Last Admin: 09/04/17 06:57 Dose: 200 mg Ipratropium [place] (Atrovent Neb 0.5mg/2.5ml) 0.5 mg HHN Q2HRT PRN PRN Reason: Shortness of Breath or Wheeze Stop: 10/30/17 19:54 Ipratropium [place] (Atrovent Neb 0.5mg/2.5ml) 0.5 mg IH QIDRT [facility] Stop: 10/31/17 14:59 Last Admin: 09/09/17 10:35 Dose: 0.5 mg Lactobacillus Rhamnosus (Culturelle 15b) 1 each PO DAILY [facility] Stop: 10/29/17 08:59 Last Admin: 09/09/17 08:20 Dose: 1 each Levetiracetam (Keppra) 500 mg PO BID [facility] Stop: 10/29/17 08:59 Last Admin: 09/09/17 08:20 Dose: 500 mg Levothyroxine Sodium (Synthroid) 0.025 mg PO QDAC [facility] Stop: 10/30/17 07:29 Last Admin: 09/09/17 06:41 Dose: 0.025 mg Lorazepam (Ativan) 0.5 mg PO Q4HR PRN; Protocol PRN Reason: Anxiety Stop: 09/29/17 03:59 Last Admin: 08/30/17 10:09 Dose: 0.5 mg Magnesium Hydroxide (Milk Of Magnesia) 30 ml PO HS [facility] Stop: 10/29/17 20:59 Last Admin: 09/08/17 20:14 Dose: 30 ml Midodrine (Proamatine) 10 mg PO TID [facility] Stop: 10/29/17 08:59 Last Admin: 09/09/17 08:20 Dose: 10 mg Multivitamins/Vitamin C (Theragran) 1 tab PO DAILY [facility] Stop: 10/29/17 08:59 Last Admin: 09/09/17 08:20 Dose: 1 tab Risperidone (Risperdal) 1 mg PO HS [facility]; Protocol Stop: 11/04/17 20:59 Last Admin: 09/08/17 20:15 Dose: 1 mg Zolpidem Tartrate (Ambien) 5 mg PO HS PRN PRN Reason: Insomnia Stop: 10/29/17 03:59 General: demented HEENT: NC/AT, PERRLA Neck: Supple Lungs: congested, rales Abdomen: soft, non-tender, non-distended, positive bowel sound Extremities: excoriation, deformity, atrophy Neurological: no change Internal Medicine Assmt/Plan - Assessment Assessment: mild protein calorie malnutrition dementia asthma gerd blindness depression anxiety djd acute renal insufficiency dm - Plan Plan: monitor s/sx of hypo/hyperglycemia fall precautions continue current plan of care Nutritional Asmnt/Malnutr-PDOC - Dietary Evaluation Malnutrition Findings (Please click <Entered> for more info): Nutritional Asmnt/Malnutrition Start: 09/02/17 15: 47 Text: Status: Active Freq: Protocol: Document 09/02/17 15:53 KRUNAL (Rec: 09/02/17 16:00 ROCIO [email or web address]) Nutritional Asmnt/Malnutrition Patient General Information Nutritional Screening Moderate Risk Diagnosis psychosis NOS Pertinent Medical Hx/Surgical Hx asthma, COPD, GERD, dementia, bilateral eye blindness, depression, anxiety, DJD, renal insufficiency, DM, PNA Subjective Information Pt seen sitting up in bed at time of visit. Spoke with PEDIATRIC CNS, PEDIATRIC CNS reported pt consumed 100% of lunch with feeding. Pt needs feeding assist d/t bilateral eye blindness. Per EMR, PO intake 5-100%. Current Diet Order/ Nutrition Support [facility] Pertinent Medications vit C, culturelle, synthroid, theragran Pertinent Labs 08/30 Na 133, Cl 97, glucose 92 , A1c 4.9 Nutritional Hx/Data Height 4 ft 8 in Height (Calculated Centimeters) 142.2 Current Weight (lbs) 129 lb Weight (Calculated Kilograms) 58.5 Weight (Calculated Grams) 33993.4 [place] Body Weight 92 Body Mass Index (BMI) 28.9 Weight Status Overweight GI Symptoms GI Symptoms None Last BM 09/01 Difficult in: None Skin Integrity/Comment: bruise Estimated Nutritional Goals BEE in Kcals: Adj wt of IBW Calories/Kcals/Kg 25-30 Kcals Calculated 9751-2368 Protein: Adj wt of IBW Protein g/k Protein Calculated 46 Fluid: ml 1150-1380ml (1ml/kcal) Nutritional Problem No current Nutrition Prob Problem N/A Malnutrition Alert Protein-Calorie Malnutrition N/A Is there a minimum of two criteria No selected? Query Text:Check all the applicable criteria. A minimum of two criteria are recommended for diagnosis of either severe or non-severe malnutrition. Intervention/Recommendation Comments 1. Continue with [facility] soft [facility] diet as ordered. Please assit pt with feeding at each meal. 2. Monitor PO intake, wt, labs and skin integrity 3. F/U as low risk in 7 days, 09/09, PO check 09/06 Expected Outcomes/Goals Expected Outcomes/Goals 1. PO intake to meet at least 75% of nutritional needs. 2. Wt stability, skin to remain intact, labs to approach WNL.
[2017-09-09] MEDS: Magnesium Hydroxide (MOM) 30 mL UDC PO SCH (20:36)
--- NOTE | 2017-09-09 22:50 | Progress Notes ---
DATE: 09/09/2017 SUBJECTIVE: Staff was spoken to. The patient is interviewed. Mood is noted to be less irritable. Affect is appropriate. The patient has tremor in the right upper extremity. The patient has paranoia, but denies any current hallucinations, screaming and yelling episodes have been coming down. ASSESSMENT: The patient is still having the mood swings and paranoid delusions. PLAN: To continue the patient's current medications and followup. JOB# [id number]
[2017-09-10] MEDS: Levothyroxine 0.025 Mg Tab PO SCH (06:38)
[2017-09-10] MEDS: Albuterol Nebulizer 2.5mg/3mL HHN SCH ×4 (06:47→19:11)
[2017-09-10] MEDS: Ipratropium Neb 0.5 mg/2.5 mL UD IH SCH ×3 (06:47→19:11)
[2017-09-10] MEDS: Multivitamin Tab PO SCH (09:32)
[2017-09-10] MEDS: Lactobacillus Rhamnosus GG 15 Billion CFU CAP.SPRINK PO SCH (09:32)
--- NOTE | 2017-09-10 17:23 | Internal Medicine Prog Note ---
Internal Medicine Subjective - Subjective Service Date: 09/10/17 Patient is:: awake, verbal, interactive, confused Patient Complaints of:: congestion Per staff patient has:: no adverse event, no episodes of fall, noncompliant, tolerating meds Internal Medicine Objective - Results Result Diagrams: 09/03/17 06:22 09/03/17 06:22 Recent Labs: Laboratory Last Values WBC 7.1 Th/cmm (4.8-10.8) 09/03/17 06:22 RBC 4.23 Mil/cmm (3.80-5.10) 09/03/17 06:22 Hgb 13.3 gm/dL (12-16) 09/03/17 06:22 Hct 39.6 % (41.0-60) L 09/03/17 06:22 MCV 93.5 fl (81-100) 09/03/17 06:22 MCH 31.5 pg (27.0-31.0) H 09/03/17 06: MCHC Differential 33.7 pg (28.0-36.0) 09/03/17 06:22 RDW 14.3 % (11.5-20.0) 09/03/17 06:22 Plt Count 162 Th/cmm (150-400) 09/03/17 06:22 MPV 6.6 fl 09/03/17 06:22 Neutrophils % 77.3 % (40.0-80.0) 09/03/17 06:22 Lymphocytes % 12.1 % (20.0-50.0) L 09/03/17 06: Monocytes % 8.3 % (2.0-10.0) 09/03/17 06:22 Eosinophils % 1.0 % (0.0-5.0) 09/03/17 06: Basophils % 1.3 % (0.0-2.0) 09/03/17 06:22 Sodium 139 mEq/L (136-145) 09/03/17 06:22 Potassium 4.3 mEq/L (3.5-5.1) 09/03/17 06:22 Chloride 102 mEq/L (98-107) 09/03/17 06:22 Carbon Dioxide 33.5 mEq/L (21.0-31.0) H 09/03/17 06:22 Anion Gap 7.8 (7.0-16.0) 09/03/17 06:22 BUN 22 mg/dL (7-25) 09/03/17 06:22 Creatinine 0.4 mg/dL (0.6-1.2) L 09/03/17 06:22 Est GFR ( Amer) > 60.0 ml/min (>90) 09/03/17 06:22 Est GFR (Non-Af Amer) > 60.0 ml/min 09/03/17 06:22 BUN/Creatinine Ratio 55.0 09/03/17 06:22 Glucose 77 mg/dL (70-105) 09/03/17 06:22 Hemoglobin A1c % 4.9 % (4.0-6.0) 08/30/17 02:05 Calcium 8.1 mg/dL (8.6-10.3) L 09/03/17 06:22 Total Bilirubin 0.3 mg/dL (0.3-1.0) 09/03/17 06:22 AST 14 U/L (13-39) 09/03/17 06:22 ALT 8 U/L (7-52) 09/03/17 06:22 Alkaline Phosphatase 50 U/L (34-104) 09/03/17 06:22 Total Protein 5.7 gm/dL (6.0-8.3) L 09/03/17 06:22 Albumin 2.9 gm/dL (3.7-5.3) L 09/03/17 06:22 Globulin 2.8 gm/dL 09/03/17 06:22 Albumin/Globulin Ratio 1.0 (1.0-1.8) 09/03/17 06:22 Triglycerides 87 mg/dL (<150) 08/30/17 02:05 Cholesterol 186 mg/dL (<200) 08/30/17 02:05 LDL Cholesterol Direct 138 mg/dL (75-193) 08/30/17 02:05 HDL Cholesterol 43 mg/dL (23-92) 08/30/17 02:05 TSH 5.67 uIU/ml (0.34-5.60) H 08/30/17 02:05 Valproic Acid 94.5 ug/mL (50.0-100.0) 09/03/17 06:22 RPR NONREACTIVE (NONREACTIVE) 08/30/17 02:05 - Physical Exam Vitals and I&O: Vital Signs Temp 99.4 F 09/10/17 16:55 Pulse 79 09/10/17 16:55 Resp 20 09/10/17 16:55 BP 97/63 09/10/17 16:55 Pulse Ox 92 09/10/17 16:55 Intake & Output 09/09/17 09/10/17 09/10/17 18:59 06:59 18:59 Intake Total 1200 120 Balance 1200 120 Intake: Oral 1200 120 Other: # Voids 3 1 # Bowel Movements 1 Stool Characteristics Soft Soft Formed Formed [place] Brown Active Medications: Current Medications Acetaminophen (Tylenol) 650 mg PO Q6H PRN PRN Reason: Pain or Fever >101 Stop: 10/29/17 06:34 Albuterol Sulfate (Albuterol 2.5mg/3ml Neb Ud) 2.5 mg HHN QIDRT [facility] Stop: 10/31/17 14:59 Last Admin: 09/10/17 14:43 Dose: 2.5 mg Albuterol/Ipratropium (Duoneb Neb) 3 ml HHN Q6HRT PRN PRN Reason: Wheezing Stop: 10/30/17 19:53 Last Admin: 09/05/17 19:51 Dose: 3 ml Alprazolam (Xanax) 0.5 mg PO Q8HR PRN; Protocol PRN Reason: Anxiety Stop: 10/29/17 12:59 Last Admin: 09/08/17 17:13 Dose: 0.5 mg Ascorbic Acid (Vitamin C) 500 mg PO DAILY [facility] Stop: 10/29/17 08:59 Last Admin: 09/10/17 09:33 Dose: 500 mg Bisacodyl (Dulcolax 10 Mg Supp) 10 mg RC DAILY PRN PRN Reason: Constipation Stop: 10/29/17 06:34 Fluoxetine HCl (Prozac) 20 mg PO DAILY [facility]; Protocol Stop: 11/02/17 14:37 Last Admin: 09/10/17 09:32 Dose: 20 mg Guaifenesin (Robitussin) 200 mg PO Q4H PRN PRN Reason: Cough or Congestion Stop: 11/01/17 21:41 Last Admin: 09/04/17 06:57 Dose: 200 mg Ipratropium [place] (Atrovent Neb 0.5mg/2.5ml) 0.5 mg HHN Q2HRT PRN PRN Reason: Shortness of Breath or Wheeze Stop: 10/30/17 19:54 Ipratropium [place] (Atrovent Neb 0.5mg/2.5ml) 0.5 mg IH QIDRT [facility] Stop: 10/31/17 14:59 Last Admin: 09/10/17 10:40 Dose: 0.5 mg Lactobacillus Rhamnosus (Culturelle 15b) 1 each PO DAILY [facility] Stop: 10/29/17 08:59 Last Admin: 09/10/17 09:32 Dose: 1 each Levetiracetam (Keppra) 500 mg PO BID [facility] Stop: 10/29/17 08:59 Last Admin: 09/10/17 16:25 Dose: 500 mg Levothyroxine Sodium (Synthroid) 0.025 mg PO QDAC [facility] Stop: 10/30/17 07:29 Last Admin: 09/10/17 06:38 Dose: 0.025 mg Lorazepam (Ativan) 0.5 mg PO Q4HR PRN; Protocol PRN Reason: Anxiety Stop: 09/29/17 03:59 Last Admin: 08/30/17 10:09 Dose: 0.5 mg Magnesium Hydroxide (Milk Of Magnesia) 30 ml PO HS [facility] Stop: 10/29/17 20:59 Last Admin: 09/09/17 20:36 Dose: 30 ml Midodrine (Proamatine) 10 mg PO TID [facility] Stop: 10/29/17 08:59 Last Admin: 09/10/17 16:25 Dose: 10 mg Multivitamins/Vitamin C (Theragran) 1 tab PO DAILY [facility] Stop: 10/29/17 08:59 Last Admin: 09/10/17 09:32 Dose: 1 tab Risperidone (Risperdal) 1 mg PO HS [facility]; Protocol Stop: 11/04/17 20:59 Last Admin: 09/09/17 20:36 Dose: 1 mg Zolpidem Tartrate (Ambien) 5 mg PO HS PRN PRN Reason: Insomnia Stop: 10/29/17 03:59 General: demented HEENT: NC/AT, PERRLA Neck: Supple Lungs: congested, rales Abdomen: soft, non-tender, non-distended, positive bowel sound Extremities: excoriation, deformity, atrophy Neurological: no change Internal Medicine Assmt/Plan - Assessment Assessment: mild protein calorie malnutrition dementia asthma gerd blindness depression anxiety djd acute renal insufficiency dm - Plan Plan: monitor s/sx of hypo/hyperglycemia fall precautions continue current plan of care Nutritional Asmnt/Malnutr-PDOC - Dietary Evaluation Malnutrition Findings (Please click <Entered> for more info): Nutritional Asmnt/Malnutrition Start: 09/02/17 15: 47 Text: Status: Complete Freq: Protocol: Document 09/02/17 15:53 HEN (Rec: 09/02/17 16:00 HEN [email or web address]) Nutritional Asmnt/Malnutrition Patient General Information Nutritional Screening Moderate Risk Diagnosis psychosis NOS Pertinent Medical Hx/Surgical Hx asthma, COPD, GERD, dementia, bilateral eye blindness, depression, anxiety, DJD, renal insufficiency, DM, PNA Subjective Information Pt seen sitting up in bed at time of visit. Spoke with PUBLIC RELATIONS OFFICER, PUBLIC RELATIONS OFFICER reported pt consumed 100% of lunch with feeding. Pt needs feeding assist d/t bilateral eye blindness. Per EMR, PO intake 5-100%. Current Diet Order/ Nutrition Support [facility] Pertinent Medications vit C, culturelle, synthroid, theragran Pertinent Labs 08/30 Na 133, Cl 97, glucose 92 , A1c 4.9 Nutritional Hx/Data Height 4 ft 8 in Height (Calculated Centimeters) 142.2 Current Weight (lbs) 129 lb Weight (Calculated Kilograms) 58.5 Weight (Calculated Grams) 65473.4 [place] Body Weight 92 Body Mass Index (BMI) 28.9 Weight Status Overweight GI Symptoms GI Symptoms None Last BM 09/01 Difficult in: None Skin Integrity/Comment: bruise Estimated Nutritional Goals BEE in Kcals: Adj wt of IBW Calories/Kcals/Kg 25-30 Kcals Calculated 2773-1725 Protein: Adj wt of IBW Protein g/k Protein Calculated 46 Fluid: ml 1150-1380ml (1ml/kcal) Nutritional Problem No current Nutrition Prob Problem N/A Malnutrition Alert Protein-Calorie Malnutrition N/A Is there a minimum of two criteria No selected? Query Text:Check all the applicable criteria. A minimum of two criteria are recommended for diagnosis of either severe or non-severe malnutrition. Intervention/Recommendation Comments 1. Continue with [facility] soft [facility] diet as ordered. Please assit pt with feeding at each meal. 2. Monitor PO intake, wt, labs and skin integrity 3. F/U as low risk in 7 days, 09/09, PO check 09/06 Expected Outcomes/Goals Expected Outcomes/Goals 1. PO intake to meet at least 75% of nutritional needs. 2. Wt stability, skin to remain intact, labs to approach WNL.
--- NOTE | 2017-09-10 18:18 | Progress Notes ---
DATE: 09/10/2017 SUBJECTIVE: Staff was spoken to. The patient is interviewed. Mood is noted to be irritable. Affect is constricted. Insight and judgment at this time are noted to be still impaired. Impulse control is noted to be improving. The patient is screaming and yelling and has been coming down. No side effects to the medications are noted. ASSESSMENT: The patient's psychosis is resolving. PLAN: To continue the patient with the supportive therapy, but the patient continues to have tremor in the upper extremity. Plan to closely monitor the patient. Possibly the patient is going to be discharged when placement is going to be in place. JOB# [id number]
[2017-09-10] MEDS: Magnesium Hydroxide (MOM) 30 mL UDC PO SCH (20:38)
[2017-09-11] MEDS: Levothyroxine 0.025 Mg Tab PO SCH (06:39)
[2017-09-11] MEDS: Ipratropium Neb 0.5 mg/2.5 mL UD IH SCH ×4 (06:42→19:01)
[2017-09-11] MEDS: Albuterol Nebulizer 2.5mg/3mL HHN SCH ×3 (06:42→19:01)
[2017-09-11] MEDS: Multivitamin Tab PO SCH (10:05)
[2017-09-11] MEDS: Lactobacillus Rhamnosus GG 15 Billion CFU CAP.SPRINK PO SCH (10:05)
--- NOTE | 2017-09-11 12:28 | Internal Medicine Prog Note ---
Internal Medicine Subjective - Subjective Patient is:: awake, verbal, interactive, confused Patient Complaints of:: congestion Per staff patient has:: no adverse event, no episodes of fall, noncompliant, tolerating meds Internal Medicine Objective - Results Result Diagrams: 09/03/17 06:22 09/03/17 06:22 Recent Labs: Laboratory Last Values WBC 7.1 Th/cmm (4.8-10.8) 09/03/17 06:22 RBC 4.23 Mil/cmm (3.80-5.10) 09/03/17 06:22 Hgb 13.3 gm/dL (12-16) 09/03/17 06:22 Hct 39.6 % (41.0-60) L 09/03/17 06:22 MCV 93.5 fl (81-100) 09/03/17 06:22 MCH 31.5 pg (27.0-31.0) H 09/03/17 06: MCHC Differential 33.7 pg (28.0-36.0) 09/03/17 06: RDW 14.3 % (11.5-20.0) 09/03/17 06:22 Plt Count 162 Th/cmm (150-400) 09/03/17 06:22 MPV 6.6 fl 09/03/17 06:22 Neutrophils % 77.3 % (40.0-80.0) 09/03/17 06:22 Lymphocytes % 12.1 % (20.0-50.0) L 09/03/17 06: Monocytes % 8.3 % (2.0-10.0) 09/03/17 06: Eosinophils % 1.0 % (0.0-5.0) 09/03/17 06:22 Basophils % 1.3 % (0.0-2.0) 09/03/17 06:22 Sodium 139 mEq/L (136-145) 09/03/17 06:22 Potassium 4.3 mEq/L (3.5-5.1) 09/03/17 06: Chloride 102 mEq/L (98-107) 09/03/17 06:22 Carbon Dioxide 33.5 mEq/L (21.0-31.0) H 09/03/17 06:22 Anion Gap 7.8 (7.0-16.0) 09/03/17 06:22 BUN 22 mg/dL (7-25) 09/03/17 06:22 Creatinine 0.4 mg/dL (0.6-1.2) L 09/03/17 06:22 Est GFR ( Amer) > 60.0 ml/min (>90) 09/03/17 06:22 Est GFR (Non-Af Amer) > 60.0 ml/min 09/03/17 06:22 BUN/Creatinine Ratio 55.0 09/03/17 06:22 Glucose 77 mg/dL (70-105) 09/03/17 06:22 Hemoglobin A1c % 4.9 % (4.0-6.0) 08/30/17 02:05 Calcium 8.1 mg/dL (8.6-10.3) L 09/03/17 06:22 Total Bilirubin 0.3 mg/dL (0.3-1.0) 09/03/17 06:22 AST 14 U/L (13-39) 09/03/17 06:22 ALT 8 U/L (7-52) 09/03/17 06:22 Alkaline Phosphatase 50 U/L (34-104) 09/03/17 06:22 Total Protein 5.7 gm/dL (6.0-8.3) L 09/03/17 06:22 Albumin 2.9 gm/dL (3.7-5.3) L 09/03/17 06:22 Globulin 2.8 gm/dL 09/03/17 06:22 Albumin/Globulin Ratio 1.0 (1.0-1.8) 09/03/17 06:22 Triglycerides 87 mg/dL (<150) 08/30/17 02:05 Cholesterol 186 mg/dL (<200) 08/30/17 02:05 LDL Cholesterol Direct 138 mg/dL (75-193) 08/30/17 02:05 HDL Cholesterol 43 mg/dL (23-92) 08/30/17 02:05 TSH 5.67 uIU/ml (0.34-5.60) H 08/30/17 02:05 Valproic Acid 94.5 ug/mL (50.0-100.0) 09/03/17 06:22 RPR NONREACTIVE (NONREACTIVE) 08/30/17 02:05 - Physical Exam Vitals and I&O: Vital Signs Temp 98.6 F 09/11/17 06:34 Pulse 82 09/11/17 10:35 Resp 18 09/11/17 10:58 BP 101/63 09/11/17 06:34 Pulse Ox 96 09/11/17 10:35 Intake & Output 09/10/17 09/11/17 09/11/17 18:59 06:59 18:59 Intake Total 1200 120 Balance 1200 120 Intake: Oral 1200 120 Other: # Voids 4 3 # Bowel Movements 1 Stool Characteristics Soft Soft Formed Formed Brown Brown Active Medications: Current Medications Acetaminophen (Tylenol) 650 mg PO Q6H PRN PRN Reason: Pain or Fever >101 Stop: 10/29/17 06:34 Albuterol Sulfate (Albuterol 2.5mg/3ml Neb Ud) 2.5 mg HHN QIDRT [facility] Stop: 10/31/17 14:59 Last Admin: 09/11/17 06:42 Dose: 2.5 mg Albuterol/Ipratropium (Duoneb Neb) 3 ml HHN Q6HRT PRN PRN Reason: Wheezing Stop: 10/30/17 19:53 Last Admin: 09/05/17 19:51 Dose: 3 ml Alprazolam (Xanax) 0.5 mg PO Q8HR PRN; Protocol PRN Reason: Anxiety Stop: 10/29/17 12:59 Last Admin: 09/08/17 17:13 Dose: 0.5 mg Ascorbic Acid (Vitamin C) 500 mg PO DAILY [facility] Stop: 10/29/17 08:59 Last Admin: 09/11/17 10:06 Dose: 500 mg Bisacodyl (Dulcolax 10 Mg Supp) 10 mg RC DAILY PRN PRN Reason: Constipation Stop: 10/29/17 06:34 Fluoxetine HCl (Prozac) 20 mg PO DAILY [facility]; Protocol Stop: 11/02/17 14:37 Last Admin: 09/11/17 10:06 Dose: 20 mg Guaifenesin (Robitussin) 200 mg PO Q4H PRN PRN Reason: Cough or Congestion Stop: 11/01/17 21:41 Last Admin: 09/04/17 06:57 Dose: 200 mg Ipratropium [place] (Atrovent Neb 0.5mg/2.5ml) 0.5 mg HHN Q2HRT PRN PRN Reason: Shortness of Breath or Wheeze Stop: 10/30/17 19:54 Ipratropium [place] (Atrovent Neb 0.5mg/2.5ml) 0.5 mg IH QIDRT [facility] Stop: 10/31/17 14:59 Last Admin: 09/11/17 10:32 Dose: 0.5 mg Lactobacillus Rhamnosus (Culturelle 15b) 1 each PO DAILY [facility] Stop: 10/29/17 08:59 Last Admin: 09/11/17 10:05 Dose: 1 each Levetiracetam (Keppra) 500 mg PO BID [facility] Stop: 10/29/17 08:59 Last Admin: 09/11/17 10:06 Dose: 500 mg Levothyroxine Sodium (Synthroid) 0.025 mg PO QDAC [facility] Stop: 10/30/17 07:29 Last Admin: 09/11/17 06:39 Dose: 0.025 mg Lorazepam (Ativan) 0.5 mg PO Q4HR PRN; Protocol PRN Reason: Anxiety Stop: 09/29/17 03:59 Last Admin: 08/30/17 10:09 Dose: 0.5 mg Magnesium Hydroxide (Milk Of Magnesia) 30 ml PO HS [facility] Stop: 10/29/17 20:59 Last Admin: 09/10/17 20:38 Dose: 30 ml Midodrine (Proamatine) 10 mg PO TID [facility] Stop: 10/29/17 08:59 Last Admin: 09/11/17 10:05 Dose: 10 mg Multivitamins/Vitamin C (Theragran) 1 tab PO DAILY [facility] Stop: 10/29/17 08:59 Last Admin: 09/11/17 10:05 Dose: 1 tab Risperidone (Risperdal) 1 mg PO HS [facility]; Protocol Stop: 11/04/17 20:59 Last Admin: 09/10/17 20:39 Dose: 1 mg Zolpidem Tartrate (Ambien) 5 mg PO HS PRN PRN Reason: Insomnia Stop: 10/29/17 03:59 General: demented HEENT: NC/AT, PERRLA Neck: Supple Lungs: congested, rales Abdomen: soft, non-tender, non-distended, positive bowel sound Extremities: excoriation, deformity, atrophy Neurological: no change Internal Medicine Assmt/Plan - Assessment Assessment: mild protein calorie malnutrition dementia asthma gerd blindness depression anxiety djd acute renal insufficiency dm - Plan Plan: monitor s/sx of hypo/hyperglycemia fall precautions continue current plan of care Nutritional Asmnt/Malnutr-PDOC - Dietary Evaluation Malnutrition Findings (Please click <Entered> for more info): Nutritional Asmnt/Malnutrition Start: 09/02/17 15: 47 Text: Status: Complete Freq: Protocol: Document 09/02/17 15:53 ROCIO (Rec: 09/02/17 16:00 HEN [email or web address]) Nutritional Asmnt/Malnutrition Patient General Information Nutritional Screening Moderate Risk Diagnosis psychosis NOS Pertinent Medical Hx/Surgical Hx asthma, COPD, GERD, dementia, bilateral eye blindness, depression, anxiety, DJD, renal insufficiency, DM, PNA Subjective Information Pt seen sitting up in bed at time of visit. Spoke with LICSW, LICSW reported pt consumed 100% of lunch with feeding. Pt needs feeding assist d/t bilateral eye blindness. Per EMR, PO intake 5-100%. Current Diet Order/ Nutrition Support [facility] Pertinent Medications vit C, culturelle, synthroid, theragran Pertinent Labs 08/30 Na 133, Cl 97, glucose 92 , A1c 4.9 Nutritional Hx/Data Height 4 ft 8 in Height (Calculated Centimeters) 142.2 Current Weight (lbs) 129 lb Weight (Calculated Kilograms) 58.5 Weight (Calculated Grams) 53245.4 [place] Body Weight 92 Body Mass Index (BMI) 28.9 Weight Status Overweight GI Symptoms GI Symptoms None Last BM 09/01 Difficult in: None Skin Integrity/Comment: bruise Estimated Nutritional Goals BEE in Kcals: Adj wt of IBW Calories/Kcals/Kg 25-30 Kcals Calculated 4222-5717 Protein: Adj wt of IBW Protein g/k Protein Calculated 46 Fluid: ml 1150-1380ml (1ml/kcal) Nutritional Problem No current Nutrition Prob Problem N/A Malnutrition Alert Protein-Calorie Malnutrition N/A Is there a minimum of two criteria No selected? Query Text:Check all the applicable criteria. A minimum of two criteria are recommended for diagnosis of either severe or non-severe malnutrition. Intervention/Recommendation Comments 1. Continue with [facility] diet as ordered. Please assit pt with feeding at each meal. 2. Monitor PO intake, wt, labs and skin integrity 3. F/U as low risk in 7 days, 09/09, PO check 09/06 Expected Outcomes/Goals Expected Outcomes/Goals 1. PO intake to meet at least 75% of nutritional needs. 2. Wt stability, skin to remain intact, labs to approach WNL.
--- NOTE | 2017-09-11 13:38 | Progress Notes ---
DATE: 09/11/2017 PSYCHIATRIC PROGRESS NOTE SUBJECTIVE: Staff was spoken too. The patient is interviewed. Mood is noted to be less irritable. Affect is appropriate. The patient's coping skills are noted to be improving at this time. The patient is stating that the glaucoma runs in the family and her mother also had ____, sister has . The patient is stating that it is an unfortunate thing that she has to have difficulty to cope with it compared to before. The patient is stating that she is feeling much better with the decrease dose of the medications. ASSESSMENT: The patient is stabilizing. PLAN: To continue the patient with the supportive therapy. I encouraged the patient to verbalize the concerns rather than to act out. JOB# [id number]
[2017-09-11] MEDS: Magnesium Hydroxide (MOM) 30 mL UDC PO SCH (20:52)
[2017-09-12] MEDS: Levothyroxine 0.025 Mg Tab PO SCH (06:34)
[2017-09-12] MEDS: Albuterol Nebulizer 2.5mg/3mL HHN SCH ×3 (06:51→14:01)
[2017-09-12] MEDS: Ipratropium Neb 0.5 mg/2.5 mL UD IH SCH ×3 (06:51→14:02)
[2017-09-12] MEDS: Lactobacillus Rhamnosus GG 15 Billion CFU CAP.SPRINK PO SCH (10:03)
[2017-09-12] MEDS: Multivitamin Tab PO SCH (10:03)
--- NOTE | 2017-09-12 10:05 | Internal Medicine Prog Note ---
Internal Medicine Subjective - Subjective Service Date: 09/12/17 Patient is:: awake, verbal, interactive, confused Patient Complaints of:: congestion Per staff patient has:: no adverse event, no episodes of fall, noncompliant, tolerating meds Internal Medicine Objective - Results Result Diagrams: 09/03/17 06:22 09/03/17 06:22 Recent Labs: Laboratory Last Values WBC 7.1 Th/cmm (4.8-10.8) 09/03/17 06:22 RBC 4.23 Mil/cmm (3.80-5.10) 09/03/17 06:22 Hgb 13.3 gm/dL (12-16) 09/03/17 06:22 Hct 39.6 % (41.0-60) L 09/03/17 06:22 MCV 93.5 fl (81-100) 09/03/17 06:22 MCH 31.5 pg (27.0-31.0) H 09/03/17 06: MCHC Differential 33.7 pg (28.0-36.0) 09/03/17 06:22 RDW 14.3 % (11.5-20.0) 09/03/17 06:22 Plt Count 162 Th/cmm (150-400) 09/03/17 06:22 MPV 6.6 fl 09/03/17 06:22 Neutrophils % 77.3 % (40.0-80.0) 09/03/17 06:22 Lymphocytes % 12.1 % (20.0-50.0) L 09/03/17 06: Monocytes % 8.3 % (2.0-10.0) 09/03/17 06:22 Eosinophils % 1.0 % (0.0-5.0) 09/03/17 06: Basophils % 1.3 % (0.0-2.0) 09/03/17 06:22 Sodium 139 mEq/L (136-145) 09/03/17 06:22 Potassium 4.3 mEq/L (3.5-5.1) 09/03/17 06:22 Chloride 102 mEq/L (98-107) 09/03/17 06:22 Carbon Dioxide 33.5 mEq/L (21.0-31.0) H 09/03/17 06:22 Anion Gap 7.8 (7.0-16.0) 09/03/17 06:22 BUN 22 mg/dL (7-25) 09/03/17 06:22 Creatinine 0.4 mg/dL (0.6-1.2) L 09/03/17 06:22 Est GFR ( Amer) > 60.0 ml/min (>90) 09/03/17 06:22 Est GFR (Non-Af Amer) > 60.0 ml/min 09/03/17 06:22 BUN/Creatinine Ratio 55.0 09/03/17 06:22 Glucose 77 mg/dL (70-105) 09/03/17 06:22 Hemoglobin A1c % 4.9 % (4.0-6.0) 08/30/17 02:05 Calcium 8.1 mg/dL (8.6-10.3) L 09/03/17 06:22 Total Bilirubin 0.3 mg/dL (0.3-1.0) 09/03/17 06:22 AST 14 U/L (13-39) 09/03/17 06:22 ALT 8 U/L (7-52) 09/03/17 06:22 Alkaline Phosphatase 50 U/L (34-104) 09/03/17 06:22 Total Protein 5.7 gm/dL (6.0-8.3) L 09/03/17 06:22 Albumin 2.9 gm/dL (3.7-5.3) L 09/03/17 06:22 Globulin 2.8 gm/dL 09/03/17 06:22 Albumin/Globulin Ratio 1.0 (1.0-1.8) 09/03/17 06:22 Triglycerides 87 mg/dL (<150) 08/30/17 02:05 Cholesterol 186 mg/dL (<200) 08/30/17 02:05 LDL Cholesterol Direct 138 mg/dL (75-193) 08/30/17 02:05 HDL Cholesterol 43 mg/dL (23-92) 08/30/17 02:05 TSH 5.67 uIU/ml (0.34-5.60) H 08/30/17 02:05 Valproic Acid 94.5 ug/mL (50.0-100.0) 09/03/17 06:22 RPR NONREACTIVE (NONREACTIVE) 08/30/17 02:05 - Physical Exam Vitals and I&O: Vital Signs Temp 97.7 F 09/12/17 06:30 Pulse 68 09/12/17 06:51 Resp 19 09/12/17 06:51 BP 104/69 09/12/17 06:30 Pulse Ox 96 09/12/17 06:51 Intake & Output 09/11/17 09/12/17 09/12/17 18:59 06:59 18:59 Intake Total 1600 120 Balance 1600 120 Intake: Oral 1600 120 Other: # Voids 5 2 # Bowel Movements 0 0 Stool Characteristics Soft Formed Brown Active Medications: Current Medications Acetaminophen (Tylenol) 650 mg PO Q6H PRN PRN Reason: Pain or Fever >101 Stop: 10/29/17 06:34 Albuterol Sulfate (Albuterol 2.5mg/3ml Neb Ud) 2.5 mg HHN QIDRT [facility] Stop: 10/31/17 14:59 Last Admin: 09/12/17 06:51 Dose: 2.5 mg Albuterol/Ipratropium (Duoneb Neb) 3 ml HHN Q6HRT PRN PRN Reason: Wheezing Stop: 10/30/17 19:53 Last Admin: 09/05/17 19:51 Dose: 3 ml Alprazolam (Xanax) 0.5 mg PO Q8HR PRN; Protocol PRN Reason: Anxiety Stop: 10/29/17 12:59 Last Admin: 09/08/17 17:13 Dose: 0.5 mg Ascorbic Acid (Vitamin C) 500 mg PO DAILY [facility] Stop: 10/29/17 08:59 Last Admin: 09/12/17 10:03 Dose: 500 mg Bisacodyl (Dulcolax 10 Mg Supp) 10 mg RC DAILY PRN PRN Reason: Constipation Stop: 10/29/17 06:34 Fluoxetine HCl (Prozac) 20 mg PO DAILY [facility]; Protocol Stop: 11/02/17 14:37 Last Admin: 09/12/17 10:03 Dose: 20 mg Guaifenesin (Robitussin) 200 mg PO Q4H PRN PRN Reason: Cough or Congestion Stop: 11/01/17 21:41 Last Admin: 09/04/17 06:57 Dose: 200 mg Ipratropium [place] (Atrovent Neb 0.5mg/2.5ml) 0.5 mg HHN Q2HRT PRN PRN Reason: Shortness of Breath or Wheeze Stop: 10/30/17 19:54 Ipratropium [place] (Atrovent Neb 0.5mg/2.5ml) 0.5 mg IH QIDRT [facility] Stop: 10/31/17 14:59 Last Admin: 09/12/17 06:51 Dose: 0.5 mg Lactobacillus Rhamnosus (Culturelle 15b) 1 each PO DAILY [facility] Stop: 10/29/17 08:59 Last Admin: 09/12/17 10:03 Dose: 1 each Levetiracetam (Keppra) 500 mg PO BID [facility] Stop: 10/29/17 08:59 Last Admin: 09/12/17 10:03 Dose: 500 mg Levothyroxine Sodium (Synthroid) 0.025 mg PO QDAC [facility] Stop: 10/30/17 07:29 Last Admin: 09/12/17 06:34 Dose: 0.025 mg Lorazepam (Ativan) 0.5 mg PO Q4HR PRN; Protocol PRN Reason: Anxiety Stop: 09/29/17 03:59 Last Admin: 08/30/17 10:09 Dose: 0.5 mg Magnesium Hydroxide (Milk Of Magnesia) 30 ml PO HS [facility] Stop: 10/29/17 20:59 Last Admin: 09/11/17 20:52 Dose: 30 ml Midodrine (Proamatine) 10 mg PO TID [facility] Stop: 10/29/17 08:59 Last Admin: 09/12/17 10:03 Dose: Not Given Multivitamins/Vitamin C (Theragran) 1 tab PO DAILY [facility] Stop: 10/29/17 08:59 Last Admin: 09/12/17 10:03 Dose: 1 tab Risperidone (Risperdal) 1 mg PO HS [facility]IANA; Protocol Stop: 11/04/17 20:59 Last Admin: 09/11/17 20:52 Dose: 1 mg Zolpidem Tartrate (Ambien) 5 mg PO HS PRN PRN Reason: Insomnia Stop: 10/29/17 03:59 General: demented HEENT: NC/AT, PERRLA Neck: Supple Lungs: congested, rales Abdomen: soft, non-tender, non-distended, positive bowel sound Extremities: excoriation, deformity, atrophy Neurological: no change Internal Medicine Assmt/Plan - Assessment Assessment: mild protein calorie malnutrition dementia asthma gerd blindness depression anxiety djd acute renal insufficiency dm - Plan Plan: monitor s/sx of hypo/hyperglycemia fall precautions continue current plan of care Nutritional Asmnt/Malnutr-PDOC - Dietary Evaluation Malnutrition Findings (Please click <Entered> for more info): Nutritional Asmnt/Malnutrition Start: 09/02/17 15: 47 Text: Status: Complete Freq: Protocol: Document 09/02/17 15:53 HENG (Rec: 09/02/17 16:00 HEN [email or web address]) Nutritional Asmnt/Malnutrition Patient General Information Nutritional Screening Moderate Risk Diagnosis psychosis NOS Pertinent Medical Hx/Surgical Hx asthma, COPD, GERD, dementia, bilateral eye blindness, depression, anxiety, DJD, renal insufficiency, DM, PNA Subjective Information Pt seen sitting up in bed at time of visit. Spoke with RECREATION PROFESSOR, RECREATION PROFESSOR reported pt consumed 100% of lunch with feeding. Pt needs feeding assist d/t bilateral eye blindness. Per EMR, PO intake 5-100%. Current Diet Order/ Nutrition Support [facility] Pertinent Medications vit C, culturelle, synthroid, theragran Pertinent Labs 08/30 Na 133, Cl 97, glucose 92 , A1c 4.9 Nutritional Hx/Data Height 4 ft 8 in Height (Calculated Centimeters) 142.2 Current Weight (lbs) 129 lb Weight (Calculated Kilograms) 58.5 Weight (Calculated Grams) 93071.4 [place] Body Weight 92 Body Mass Index (BMI) 28.9 Weight Status Overweight GI Symptoms GI Symptoms None Last BM 09/01 Difficult in: None Skin Integrity/Comment: bruise Estimated Nutritional Goals BEE in Kcals: Adj wt of IBW Calories/Kcals/Kg 25-30 Kcals Calculated 4844-4472 Protein: Adj wt of IBW Protein g/k Protein Calculated 46 Fluid: ml 1150-1380ml (1ml/kcal) Nutritional Problem No current Nutrition Prob Problem N/A Malnutrition Alert Protein-Calorie Malnutrition N/A Is there a minimum of two criteria No selected? Query Text:Check all the applicable criteria. A minimum of two criteria are recommended for diagnosis of either severe or non-severe malnutrition. Intervention/Recommendation Comments 1. Continue with [facility] soft ground diet as ordered. Please assit pt with feeding at each meal. 2. Monitor PO intake, wt, labs and skin integrity 3. F/U as low risk in 7 days, 09/09, PO check 09/06 Expected Outcomes/Goals Expected Outcomes/Goals 1. PO intake to meet at least 75% of nutritional needs. 2. Wt stability, skin to remain intact, labs to approach WNL.
--- NOTE | 2017-09-12 20:44 | Discharge Summary ---
DATE OF DISCHARGE: 09/12/2017 IDENTIFYING DATA: The patient is a 62-year-old woman transferred from [facility] in view of her acute agitation and anger outbursts and aggressive behavior. CHIEF COMPLAINT: "I don't know why they have to bring me in here in." DIAGNOSES AT THE TIME OF ADMISSION: AXIS IA: Psychotic disorder, not otherwise specified. AXIS IB. Dementia and behavioral change, secondary to ataxia. AXIS II: None. AXIS III: As per the primary care physician. HISTORY OF PRESENT ILLNESS: Please refer to the 08/30/[address] Corey who was covering for me. Physical examination was done by Dr. Coyle and is noted to be significant for asthma, glaucoma, GERD, legally blind and degenerative joint disease. HOSPITAL COURSE AND RESPONSE TO TREATMENT: The patient has been observed on inpatient unit, provided with supportive psychotherapy. The patient's medications have been gradually decreased, the Risperdal, she was on a high dose and it was changed to 1 mg at bedtime. The fluoxetine was given only 20 mg a day and the patient has been closely monitored and encouraged to participate in the groups and verbalize the concerns. The patient started to fairly well. No side effects to the medications are noted. The patient was finally discharged on 09/12/2017 with recommendation that she is going to be seeking treatment on an outpatient basis. MENTAL STATUS EXAMINATION: At the time of discharge, the patient was noted to be anxious. Affect is appropriate. Not suicidal or homicidal. Insight and judgment are noted to be fair. Impulse control is also noted to be fair. DIAGNOSIS AT THE TIME OF DISCHARGE: AXIS I: Psychotic disorder, not otherwise specified. AXIS II: None. AXIS III: Diabetes mellitus and glaucoma, arthritis and obesity. AFTERCARE PLAN: The patient is discharged to [facility] to be followed up on an outpatient basis. JOB# [id number]
== END 2017-09-12 18:13 | DRG 885 ==
LOC: ER 01:12 → GERO 03:25
PROVIDERS: ADMIT Psychiatry & Neurology Psychiatry; ATTEND Psychiatry & Neurology Psychiatry
DX: F29 Unspecified psychosis not due to a substance or known physiological condition (principal); F02.81 Dementia in other diseases classified elsewhere, unspecified severity, with behavioral disturbance; E44.1 Mild protein-calorie malnutrition; N28.9 Disorder of kidney and ureter, unspecified; R27.0 Ataxia, unspecified; J45.909 Unspecified asthma, uncomplicated; H40.9 Unspecified glaucoma; K21.9 Gastro-esophageal reflux disease without esophagitis; M19.90 Unspecified osteoarthritis, unspecified site; G30.9 Alzheimer's disease, unspecified; H54.8 Legal blindness, as defined in USA; E66.9 Obesity, unspecified; F41.9 Anxiety disorder, unspecified; E11.9 Type 2 diabetes mellitus without complications; F32.9 Major depressive disorder, single episode, unspecified; Z87.01 Personal history of pneumonia (recurrent); Z68.28 Body mass index [BMI] 28.0-28.9, adult; Z87.11 Personal history of peptic ulcer disease
CPT/HCPCS: 36415-UA; 71045-TC; 80053-TC; 80061-TC; 80164-TC; 83036-90; 84443-TC; 85025-TC; 86592-TC; 90779; 90899; 93005; 94667; 94668; 94760; J7613; Z7610